=== PATIENT | male | born 1980 | race Caucasian/White ===

== ENCOUNTER 2024-11-18 11:10 | Emergency (ER) | payer OTHER, SELFPAY ==
--- NOTE | ~2024-11-18 | XR_ITS ---
EXAMINATION: XR CHEST CLINICAL INFORMATION: Chest pain COMPARISON: 09/12/2023 TECHNIQUE: PA view of the chest was obtained. FINDINGS: Heart, mediastinum, and hilar structures are unremarkable. Lungs are clear and well expanded. No bony abnormality is seen. XR/XR chest 1V IMPRESSION: No acute disease Electronically signed by: Medardo Benites MD 11/18/2024 01:41 PM EDT
--- NOTE | 2024-11-18 11:14 | ECG_ITS ---
Test Reason : CP Blood Pressure : */* mmHG Vent. Rate : 82 BPM Atrial Rate : 82 BPM P-R Int : 114 ms QRS Dur : 100 ms QT Int : 364 ms P-R-T Axes : 21 46 46 degrees QTcB Int : 425 ms Normal sinus rhythm Normal ECG When compared with ECG of 12-Sep-2023 13:09, No significant change was found Referred By: Jeaneth Min Electronically Signed By: JENNY JOHNSON
[2024-11-18 11:35] VITALS: BP 154/88; PULSE 78; RESP 18; TEMP 36.7; O2SAT 97; BMI 28.8
--- NOTE | 2024-11-18 11:35 | ED_ITS ---
HPI - Chest Pain General Chief Complaint: General Medical Stated Complaint: Chest pain, hand numbness Time Seen by Provider: 11/18/24 14:09 Source: patient Mode of arrival: ambulatory Limitations: no limitations History of Present Illness ED Provider: HPI narrative: 44-year-old male, currently tobacco use or presenting with numbness in his both hands, history of cervical radiculopathy, history of recurrent GI issues including Tito fundoplication, anxiety presented with numbness in both hands, he was performing some physical activity this friend and she just wants to make sure that he is not having a heart attack. No fevers or chills no hemoptysis. Related Data Previous Rx's ?Medication ?Instructions ?Recorded acetaminophen 500 mg tablet 500 mg PO Q6H PRN fever or pain 10/29/22 (Tylenol Extra Strength) #14 tabs cyclobenzaprine 5 mg tablet 5 mg PO Q8H PRN pain (scale score 10/29/22 7-10) 5 days #14 tabs lidocaine 5 % topical patch 1 patch topical DAILY PRN pain #30 10/29/22 (Lidoderm) ea naproxen 500 mg tablet 500 mg PO BID PRN pain 10 days #20 10/29/22 tabs oxycodone 5 mg capsule 5 mg PO Q8H PRN pain (scale score 10/29/22 7-10) 3 days #9 caps cyclobenzaprine 5 mg tablet 5 mg PO Q8H PRN pain (scale score 02/03/23 7-10) 5 days #14 tabs lidocaine 5 % topical patch 1 patch topical DAILY PRN pain #30 02/03/23 (Lidoderm) ea lorazepam 1 mg tablet (Ativan) 1 mg PO BID PRN anxiety #14 tabs 09/12/23 lorazepam 1 mg tablet (Ativan) 1 mg PO BID PRN anxiety #10 tabs 11/06/23 prednisone 20 mg tablet 60 mg (3 x 20 mg) PO DAILY 5 days 11/06/23 #15 tabs Allergies Allergy/AdvReac Type Severity Reaction Status Date / Time No Known Allergies Allergy Verified 11/18/24 11:38 Review of Systems 2 Constitutional: Constitutional: Reports as per [facility] Social History Social History Do you have a plan to hurt others: No Plan Physical Exam 2 Vital Signs: Vital Signs: Last Vital Signs Temp 98.1 F 11/18/24 11:35 Pulse 78 11/18/24 11:35 Resp 18 11/18/24 11:35 BP 154/88 H 11/18/24 11:35 Pulse Ox 97 11/18/24 11:35 O2 Del Method Room Air 11/18/24 11:35 BMI result Body Mass Index 28.8 Const: Other: * Gen: ?Overall well-appearing patient * HEENT: PERRLA, EOMI, MMM, * Neck: Supple, no LAD * CV: RRR, no obvious murmurs appreciated * Resp: ?No wheezing rales rhonchi no stridor moving air well * Abd: ?Bowel sounds are present, no tenderness no rebound no rigidity * MSK: FROM, strength 5/5 all extremities * Skin: Warm, dry, intact, radial ulna median motor sensory intact bilateral upper extremity radial ulnar pulses +2 * Neuro: ?Alert and oriented x3, moving upper and lower extremities symmetrically, no obvious facial asymmetry noted Course Course Course Narrative: This is a Rapid Medical Exam performed in triage by Jeaneth Min PA-C. Full HPI, ROS and PE to be performed by primary ED provider. 44 yo M presenting to the ED c/o chest pain w/bilateral arm numbness radiating to legs & nausea x last couple days. Admits CP is intermittent. Also reports hernia PE: NAD, nontoxic appearing, talking in complete sentences Plan: EKG, labs, CXR, SARs Medical Decision Making Medical Decision Making [facility] Narrative: No physical exam findings for cervical myelopathy, he will likely require surgeries becoming more symptomatic but no motor weakness, reviewed CT from prior visit, cardiac workup unremarkable, no hypoxia tachycardia, PERC negative, chest x-ray without pneumonia pneumothorax we will discharge Differential Diagnosis Differential Diagnoses: The differential diagnosis associated with the presentation includes ACS, pneumothorax, aortic dissection, PE, Boerhaave syndrome Lab Data [facility] Lab Attestation statement: I reviewed the patient's lab results. 11/18/24 12:40 11/18/24 12:40 Labs: Lab Results 11/18/24 Range/Units 12:40 WBC 7.8 (4.8-10.8) X10*3/uL RBC 4.52 L (4.60-5.80) X10*6/uL Hgb 13.3 L (14.0-18.0) g/dl Hct 38.8 L (42.0-52.0) % MCV 85.8 (80.0-98.0) fL MCH 29.4 (27.0-33.0) pg MCHC 34.3 (31.0-36.0) g/dl RDW 12.5 (11.0-16.0) % Plt Count 246 (160-400) X10*3/uL MPV 9.5 (9.4-12.4) fL Immature Gran % (Auto) 0.3 (0.0-0.4) % Neut % (Auto) 64.3 (45-73) % Lymph % (Auto) 27.7 (20-40) % [place] % (Auto) 5.2 (2-11) % Eos % (Auto) 2.2 (0-4) % Baso % (Auto) 0.3 (0-2) % Lymph # (Auto) 2.2 (1.2-4.9) X10*3/uL [place] # (Auto) 0.4 (0.1-1.2) X10*3/uL Eos # (Auto) 0.2 (0.0-0.4) X10*3/uL Baso # (Auto) 0.0 (0.0-0.2) X10*3/uL Abs Immat Gran (auto) 0.02 (0.00-0.03) X10*3/uL Absolute Neuts (auto) 5.0 (2.0-8.3) x10*3/uL Absolute Nucleated RBC 0.000 (0.0-0.012) X10*3/uL Nucleated RBC % (auto) 0.0 (0.0-0.2) /100WBC Sodium 132 L (135-145) mmol/L Potassium 4.5 (3.3-5.1) mmol/L Chloride 99 (96-108) mmol/L Carbon Dioxide 25 (22-29) mmol/L Anion Gap 13 (12-20) BUN 13 (9-16) mg/dL Creatinine 0.95 (0.5-1.4) mg/dL Estim Creat Clear Calc 109.2 Estimated GFR > 60 Random Glucose 137 H (60-115) mg/dL Calcium 9.9 (8.4-10.2) mg/dL Magnesium 1.6 (1.6-2.6) mg/dL Total Bilirubin 0.5 (0.0-1.0) mg/dL Direct Bilirubin 0.2 (0.0-0.5) mg/dL AST 37 (5-37) U/L ALT 51 H (0-40) U/L Alkaline Phosphatase 91 (39-117) U/L Troponin I High Sens < 2.7 (<3.5-35.0) ng/L Total Protein 7.4 (6.5-8.0) g/dL Albumin 4.8 (3.5-5.0) g/dL Lipase 30 (8-78) U/L Influenza Type A (PCR) NEGATIVE (Negative) Influenza Type B (PCR) NEGATIVE (Negative) RSV RNA Qual (PCR) NEGATIVE (Negative) SARS-CoV-2 RNA (RT-PCR) NEGATIVE (Negative) Independent Interpretation I performed an independent interpretation of an: EKG (74 beats per minute normal EKG) Radiology Impression Discussion of test interpretation with radiology: I have reviewed the radiologist's reading. Radiologist Impression: Chest x-ray unremarkable Discharge Plan Discharge Clinical Impression: Chronic neck pain, Chest pain, precordial Patient Disposition: Home, Self-Care Additional Instructions: Your workup today did not reveal any findings to suspect that you are having a heart attack, he had a normal EKG, chest x-ray, cardiac enzymes, and reassuring physical exam and vital signs. You can surely take ibuprofen 400 mg every 6 hours needed for pain, take with food, we discussed follow up with Neurosurgery for your chronic neck issue, and if you have any other issues concerns come back to the ER Prescriptions: No Action lorazepam [Ativan] 1 mg tablet 1 mg PO BID PRN (Reason: anxiety) Qty: 14 0RF lorazepam [Ativan] 1 mg tablet 1 mg PO BID PRN (Reason: anxiety) Qty: 10 0RF prednisone 20 mg tablet 60 mg PO DAILY 5 Days Qty: 15 0RF acetaminophen [Tylenol Extra Strength] 500 mg tablet 500 mg PO Q6H PRN (Reason: fever or pain) Qty: 14 0RF lidocaine [Lidoderm] 5 % adhesive patch,medicated 1 patch topical DAILY MDD remove after 12 hours PRN (Reason: pain) Qty: 30 0RF Rx Instructions: leave on most painful area for up to 12 hrs naproxen 500 mg tablet 500 mg PO BID PRN (Reason: pain) 10 Days Qty: 20 0RF cyclobenzaprine 5 mg tablet 5 mg PO Q8H PRN (Reason: pain (scale score 7-10)) 5 Days Qty: 14 0RF oxycodone 5 mg capsule 5 mg PO Q8H PRN (Reason: pain (scale score 7-10)) 3 Days Qty: 9 0RF Rx Instructions: Partial Fill upon patient request. lidocaine [Lidoderm] 5 % adhesive patch,medicated 1 patch topical DAILY MDD remove after 12 hours PRN (Reason: pain) Qty: 30 0RF Rx Instructions: leave on most painful area for up to 12 hrs cyclobenzaprine 5 mg tablet 5 mg PO Q8H PRN (Reason: pain (scale score 7-10)) 5 Days Qty: 14 0RF Print Language: Choose Not To Answer
[2024-11-18 12:47] LABS: MANUAL DIFF FLAG NO
[2024-11-18 12:48] LABS: Basophils Percent Auto 0.3 % (0-2); Eosinophils Absolute Auto 0.2 X10*3/uL (0.0-0.4); Eosinophils Percent Auto 2.2 % (0-4); Hematocrit 38.8 % (42.0-52.0); Hemoglobin 13.3 g/dl (14.0-18.0); Imm Gran Abs Auto 0.02 X10*3/uL (0.00-0.03); Imm Gran Pct Auto 0.3 % (0.0-0.4); Lymphocytes Absolute Auto 2.2 X10*3/uL (1.2-4.9); Lymphocytes Percent Auto 27.7 % (20-40); Mean Corpuscular HGB Conc 34.3 g/dl (31.0-36.0); Mean Corpuscular Hemoglobin 29.4 pg (27.0-33.0); Mean Corpuscular Volume 85.8 fL (80.0-98.0); Mean Platelet Volume 9.5 fL (9.4-12.4); Monocytes Absolute Auto 0.4 X10*3/uL (0.1-1.2); Monocytes Percent Auto 5.2 % (2-11); Neutrophils Percent Auto 64.3 % (45-73); Platelet Count 246 X10*3/uL (160-400); Red Blood Count 4.52 X10*6/uL (4.60-5.80); Red Cell Distribution Width 12.5 % (11.0-16.0); White Blood Count 7.8 X10*3/uL (4.8-10.8)
[2024-11-18 13:01] LABS: Alanine Aminotransferase 51 U/L (0-40); Albumin Level 4.8 g/dL (3.5-5.0); Alkaline Phosphatase 91 U/L (39-117); Anion Gap 13 (12-20); Aspartate Amino Transferase 37 U/L (5-37); Bilirubin Direct 0.2 mg/dL (0.0-0.5); Bilirubin Total 0.5 mg/dL (0.0-1.0); Blood Urea Nitrogen 13 mg/dL (9-16); Calcium 9.9 mg/dL (8.4-10.2); Carbon Dioxide 25 mmol/L (22-29); Chloride 99 mmol/L (96-108); Creatinine Clr Calc Pharmacy 109.2; Estimated Glomerular Filt Rate > 60; Glucose Random 137 mg/dL (60-115); Lipase 30 U/L (8-78); Magnesium 1.6 mg/dL (1.6-2.6); Potassium 4.5 mmol/L (3.3-5.1); Sodium 132 mmol/L (135-145); Total Protein 7.4 g/dL (6.5-8.0)
[2024-11-18 13:13] LABS: Troponin-I High Sensitivity < 2.7 ng/L (<3.5-35.0)
[2024-11-18 13:27] LABS: Influenza A PCR NEGATIVE (Negative); Influenza B PCR NEGATIVE (Negative); Resp Syncy Virus RNA Qual PCR NEGATIVE (Negative); SARS COV2 PCR INHOUSE NEGATIVE (Negative)
[2024-11-18 14:28] VITALS: BP 140/86; PULSE 80; RESP 16; TEMP 36.8; O2SAT 97
[2024-11-18 14:43] VITALS: BP 140/86; PULSE 80; RESP 16; TEMP 36.8; O2SAT 97
--- OUTSIDE RECORDS SUMMARY | 2024-11-18 17:32 | XMS_ITS | Clinical Summary ---
Author Organization [facility] [address] [place] [address] [place] [phone] Phone Care Team Providers Care Manager Research Development Name Role Phone Paulette Hollis MD Primary Care Provider [phone] Allergies Active Allergy Reactions Criticality Noted Date Comments Cat Dander 04/14/2020 Other reaction(s): Unknown Tree Nuts Anaphylaxis High 04/14/2020 Hazelnuts Medications loratadine (CLARITIN) 10 mg tablet Take 1 Tablet by mouth daily. Prn seasonal 4 Active calcium carbonate (TUMS) 500 mg (200 mg elemental calcium) chewable tablet Chew 1 tablet (500 mg total) 1 (one) time each day. Active acetaminophen (TYLENOL) 500 mg tablet Take 1 Tablet by mouth every 6 hours as needed. 2 tabs twice a day Active ibuprofen (ADVIL,MOTRIN) 600 mg tablet Take 1 Tablet by mouth every 6 hours as needed. Active renal multivitamin (DIALYVITE-800 PLUS D) chewable tablet Chew 1 tablet 1 (one) time each day. Active Active Problems Problem Noted Date Diagnosed Date Chronic low back pain with sciatica 11/17/2023 Overview (2024): Last Assessment & Plan: Mr. Rodriguez has a history of a lumbar herniated disc 10 years ago and he has had some degree of symptoms since that time. He now describes occasional episodes of the right leg going numb. A lumbar spine MRI was denied and he has tried physical therapy instead without relief. He had no relief from PT in the past either. At this time, we will concentrate on his neck pain. Cervical spondylosis 09/09/2023 Overview (2024): Last Assessment & Plan: Mr. Rodriguez continues to describe daily neck pain with a tightness in the back of his neck. His hands go numb throughout the day with various activities but particularly driving and he has episodes of dropping things. 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 He has tried using a home TENS unit without much benefit. He takes Tylenol and ibuprofen. On exam, cervical rotation is 75 degrees bilaterally, strength 5/5, sensation light touch intact, Tinel's test and Phalen's maneuver are negative. We reviewed his cervical spine MRI from 08/21/2023 which shows loss of disc height at C4-5 with mild central stenosis and mild to moderate foraminal stenosis. There is no cord compression or visible nerve root compression though the foramen is a little short. An upper extremity EMG at [facility] performed by Dr. Crane on 10/06/2023 was within normal limits. At this point, Mr. Barkley would like to explore any remaining options as he wants to return to full work and activity. Though there was not evidence of radiculopathy on the EMG, I imagine that he could develop symptoms after long periods of being upright. I suggested trying a home traction unit and if he sees relief, I would consider a C5-6 ACDF with plating. He is agreeable with the plan and a prescription was given. 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 Negative for dysplasia. Tito Fundoplication in 05/2012 Dr. Arroyo. 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 Recommend repeat upper endoscopy in 2 years. GERD (gastroesophageal reflux disease) 3 Hiatal hernia 05/26/2013 Resolved Problems Problem Noted Date Diagnosed Date Resolved Date Tattoo of skin 09/21/2013 07/14/2024 Bipolar affective disorder ( [facility] V24, [facility] V28) 05/26/2013 07/14/2024 Overview (2024): Getting ativan from Steph Jerome at [facility] for anxiety symptoms Encounters Date Type Department Care Team Description 10/27/2024 11:30 AM EDT Office Visit Adult Medicine [facility] [address] [place] [phone] Paul Mccormack PA Tongue lesion (Primary Dx) from Last 3 Months Immunizations Name Administration Dates Next Due Tdap Tetanus diptheria acell ular pertussis (Boostrix; Adacel) 7yo and older 07/14/2013 Surgical History Surgery Date Site/Laterality Comments TONSILLECTOMY PROCEDURE: HISTORICAL TONSILLECTOMY WRIST SURGERY 07/2012 PROCEDURE: HISTORICAL WRIST SURGERY; COMMENT: left wrist orif OTHER SURGICAL HISTORY PROCEDURE: LAPAROSCOPIC FUNDOPLASTY; COMMENT: nissel fundoplication ESOPHAGOGASTRODUODENOSCOPY 03/20/2011 PROCEDURE: CO EGD TRANSORAL BIOPSY SINGLE/MULTIPLE; COMMENT: Dr. 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 Mild chronic gastritis. Normal duodenal biopsy. Esophageal biopsy positive for Hubbard's mucosa without dysplasia. ESOPHAGOGASTRODUODENOSCOPY 04/27/2013 PROCEDURE: CO EGD TRANSORAL BIOPSY SINGLE/MULTIPLE; COMMENT: Dr. Jain - long segment of Hubbard's esophagus. Status post fundoplication. Esophageal biopsy confirms Hubbard's mucosa without dysplasia. Recommend repeat upper endoscopy in 2 years. ESOPHAGOGASTRODUODENOSCOPY 01/19/15 PROCEDURE: CO ESOPHAGOGASTRODUODENOSCOPY TRANSORAL DIAGNOSTIC; COMMENT: Dr. 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 Arroyo Bipolar affective disorder ( [facility] V24, [facility] V28) 05/26/2013 DX:Bipolar affective disorde r ([facility]); COMMENT: Getting ativan from Steph Jerome at [facility] for anxiety symptoms Osteopenia DX:Osteopenia Tattoo of skin 09/21/2013 Family History Medical History Relation Name Comments Other: early onset alzeihmers Father Lymphoma Maternal Grandfather Diabetes Mother Colon cancer Paternal Grandfather Alzheimer's disease Paternal Grandmother Relation Name Status Comments Father healthy Maternal Grandfather Mother Alive dm, htn Paternal Grandfather Paternal Grandmother Social History Tobacco Use Types Packs/Day Years Used Date Smoking Tobacco: Former Cigarettes Q uit: 06/16/2010 Smokeless Tobacco: Never Tobacco Cessation:Counseling Given: Not Answered Alcohol Use Standard Drinks/Week Comments No 0 (1 standard drink = 0.6 oz pur e alcohol) Housing Instability Answer Date Recorde d Are you worried that in the next 2 months you may not have stable housing? Patient declined 10/26/2024 Food Access & Nutrition Answer Date Rec orded Do you have access to a vari ety of food including fruits and vegetables? Patient declined 10/26/2024 Health Literacy Answer Date Recorded How often do you need to hav e someone help you when you read instructions, pamphlets, or other written material from your doctor or pharmacy? Patient declined 10/26/2024 Caregiver: How often do you need to have someone help you when you read instructions, pamphlets, or other written material from your doctor or pharmacy? Not on file 025 Financial Risk Answer Date Recorded How hard is it for you to pa y for the very basics like food, housing, medical care, and air conditioning / heating? Patient declined 10/26/2024 Transportation Answer Date Recorded Has the lack of transportati on kept you from meetings, work, or from getting things needed for daily living? Patient declined 10/26/2024 Has the lack of transportati on kept you from medical appointments or from getting medications? Patient declined 10/26/2024 Social Isolation Answer Date Recorded How often do you feel lonely or isolated from those around you? Patient declined 10/26/2024 Food Risk Answer Date Recorded Within the past 12 months we worried whether our food would run out before we got money to buy more. Patient declined 025 Within the past 12 months th e food we bought just didn't last and we didn't have money to get more. Patient declined 10/14 Dependent Care Answer Date Recorded Do you need help finding or paying for care for your loved ones. For example, child attendant or elderly care for an older adult? Patient declined 10/26/2024 Education Answer Date Recorded Do you think completing more education or training, like finishing a GED, going to college, or learning a trade, would be helpful for you? Patient declined 10/26/2024 Employment and Income Answer Date Recor ded During the last four weeks, have you been actively looking for work? Patient declined 10/26/2024 Living Situation Answer Date Recorded What is your living situation? 0 10/26/2024 Sex and Gender Information Value Date Recorded Sex Assigned at Not on file Legal Sex Male 1:15 AM EST Gender Identity Not on file Sexual Orientation Not on file Obstetrics History Last Filed Vital Signs Vital Sign Reading Time Taken Comments Blood Pressure 112/70 10/27/2024 11:22 AM EDT Pulse 81 10/27/2024 11:22 AM EDT Temperature 36.8 ??C (98.3 ??F) 10/27/2024 11:22 AM E DT Respiratory Rate 16 10/27/2024 11:22 AM EDT Oxygen Saturation - - Inhaled Oxygen Concentration - - Weight 87.1 kg (192 lb) 10/27/2024 11:22 AM EDT Height 175.3 cm (5' 9 ) 10/27/2024 11:22 AM EDT Body Mass Index 28.35 10/27/2024 11:22 AM EDT Plan of Treatment Health Maintenance Due Date Last Done Comments Hepatitis B Vaccines (3 of 3 - 3-dose series) 12/24/2000 10/29/2000, 02/12/1999, 01/20/1998 DTaP,Tdap,and Td Vaccines (8 - Td or Tdap) 07/14/2023 07/14/2013, 12/30/1994, 02/10/1985, Additional history exists COVID-19 Vaccine ( season) 2024 12/06/2020, 11/15/2020 Influenza Vaccine (Season Ended) 2025 Depression Screening 10/26/2025 10/26/2024 Social Influencers of Health Screening 10/26/2025 10/26/2024 Cholesterol Screening (Lipid Panel) 10/09/2028 10/10/2023, 10/10/2023 IPV Vaccines Completed 02/10/1985, 11/14, 1980, Additional history exists MMR Vaccines Completed 11/13/1992, 08/30/1981 HIV Screening Completed 12/20/2020 Hepatitis C Screening Completed 05/30/2022 HIB Vaccines Aged Out No longer eligi ble based on patient's age to complete this topic HPV Vaccines Aged Out No longer eligi ble based on patient's age to complete this topic Hepatitis A Vaccines Aged Out No long er eligible based on patient's age to complete this topic Meningococcal ACWY Vaccine Aged Out N o longer eligible based on patient's age to complete this topic Meningococcal B Vaccine Aged Out No l onger eligible based on patient's age to complete this topic Pneumococcal Vaccine: Pediatrics (0 to 5 Years) and At-Risk Patients (6 to 64 Years) Aged Out No longer eligible based on patient's age to complete this topic RSV Immunization Patients Under 20 months Aged Out No longer eligible based on patient's age to complete this topic Varicella Vaccines Aged Out No longer eligible based on patient's age to complete this topic Procedures Procedure Name Priority Date/Time Associated Diagnosis Comments LIPID PANEL Routine 10/10/2023 HEPATITIS C SCREENING Routine 05/30/2022 HIV SCREENING Routine 12/20/2020 from Last 3 Months or Most Recently Relevant to Health Maintenance Results * (ABNORMAL) Lipid panel (10/10/2023) LDL/HDL Ratio 5(A) 0 - 4 Triglycerides 213(A) 0 - 150 mg/dL Cholesterol 295(A) 0 - 200 mg/dL HDL 65 >=40 mg/dL LDL Cholesterol 188(A) 0 - 100 mg/dL Blood Venous blood specimen / Unknown Historical Provider LAB BLOOD ORDERABLES Neha l Result * Hepatitis C Screening (05/30/2022) Hepatitis C Screening abstracted Historical Provider HEALTH MAINTENANCE Final Result * HIV Screening (12/20/2020) HIV Screening abstracted us Historical Provider HEALTH MAINTENANCE Final Result from Last 3 Months or Most Recently Relevant to Health Maintenance Insurance [facility] [employer] Care Teams Manager Research Development Relationship Specialty Start Date End Date Paulette Hollis MD [address] [place] [phone] PCP - General Internal Medicine 02/25/22
== END 2024-11-18 14:47 | disposition home or self-care (01) ==
LOC: HO.ED 14:51
PROVIDERS: Physician Assistant; Emergency Provider Emergency Medicine
DX: R07.89 Other chest pain (principal); M54.2 Cervicalgia; Z03.818 Encounter for observation for suspected exposure to other biological agents ruled out; Z79.899 Other long term (current) drug therapy
CPT/HCPCS: 0241U; 71045; 80048; 80076; 83690; 83735; 84484; 85025; 93005; 99283; 99284

== ENCOUNTER → 2024-11-18 11:38 | Outpatient (BNV) | payer OTHER, SELFPAY | PROVIDERS: Visit Provider Radiology Diagnostic Radiology | DX: R07.9 Chest pain, unspecified (principal) | CPT/HCPCS: 71045 ==

== ENCOUNTER 2024-12-08 22:30 | Emergency (ER) | payer OTHER, SELFPAY ==
--- NOTE | ~2024-12-08 | XR_ITS ---
CLINICAL HISTORY: acute on chronic pain, no trauma 2 views cervical spine Comparison: CT/SR - CT CERVICAL SPINE WO IV CON - 11/06/23 17:01 EDT Findings: There is straightening of the normal cervical lordosis. No acute fractures or dislocation. Multilevel degenerative changes are present, more severe at C5-C6. Prevertebral soft tissues within normal limits. IMPRESSION: No acute findings. This document has been electronically signed by: Pramod Cee MD, PHD on 12/09/2024 02:14:14
--- NOTE | ~2024-12-08 | XR_ITS ---
CLINICAL HISTORY: hx T4 fx due to osteoporosis, c o pain 2 views thoracic spine Comparison: CR/SR - XR THORACIC SPINE 3V - 10/29/22 12:57 EDT Findings: Normal vertebral body alignment. No acute fractures or dislocation. No significant degenerative change. IMPRESSION: No acute findings. This document has been electronically signed by: Pramod Cee MD, PHD on 12/09/2024 02:12:53
[2024-12-08 22:33] VITALS: BP 168/101; PULSE 91; RESP 18; TEMP 36.5; O2SAT 98; BMI 29.0
[2024-12-08 23:36] VITALS: BP 159/98; PULSE 93; RESP 18; TEMP 36.7; O2SAT 96
[2024-12-09 00:29] LABS: MANUAL DIFF FLAG NO
[2024-12-09 00:33] LABS: Basophils Percent Auto 0.3 % (0-2); Eosinophils Absolute Auto 0.1 X10*3/uL (0.0-0.4); Eosinophils Percent Auto 0.8 % (0-4); Hematocrit 34.4 % (42.0-52.0); Hemoglobin 12.3 g/dl (14.0-18.0); Imm Gran Abs Auto 0.03 X10*3/uL (0.00-0.03); Imm Gran Pct Auto 0.2 % (0.0-0.4); Lymphocytes Absolute Auto 2.9 X10*3/uL (1.2-4.9); Lymphocytes Percent Auto 22.8 % (20-40); Mean Corpuscular HGB Conc 35.8 g/dl (31.0-36.0); Mean Corpuscular Hemoglobin 29.6 pg (27.0-33.0); Mean Corpuscular Volume 82.7 fL (80.0-98.0); Mean Platelet Volume 9.5 fL (9.4-12.4); Monocytes Absolute Auto 0.5 X10*3/uL (0.1-1.2); Monocytes Percent Auto 4.2 % (2-11); Neutrophils Percent Auto 71.7 % (45-73); Platelet Count 214 X10*3/uL (160-400); Red Blood Count 4.16 X10*6/uL (4.60-5.80); Red Cell Distribution Width 12.3 % (11.0-16.0); White Blood Count 12.5 X10*3/uL (4.8-10.8)
[2024-12-09 00:51] LABS: Alanine Aminotransferase 60 U/L (0-40); Albumin Level 4.5 g/dL (3.5-5.0); Alkaline Phosphatase 78 U/L (39-117); Anion Gap 17 (12-20); Aspartate Amino Transferase 39 U/L (5-37); Bilirubin Total 0.5 mg/dL (0.0-1.0); Blood Urea Nitrogen 11 mg/dL (9-16); Calcium 9.6 mg/dL (8.4-10.2); Carbon Dioxide 19 mmol/L (22-29); Chloride 98 mmol/L (96-108); Creatinine Clr Calc Pharmacy 115.7; Estimated Glomerular Filt Rate > 60; Glucose Random 149 mg/dL (60-115); Potassium 3.9 mmol/L (3.3-5.1); Sodium 130 mmol/L (135-145); Total Protein 6.9 g/dL (6.5-8.0)
[2024-12-09 01:12] LABS: Influenza A PCR NEGATIVE (Negative); Influenza B PCR NEGATIVE (Negative); Resp Syncy Virus RNA Qual PCR NEGATIVE (Negative); SARS COV2 PCR INHOUSE NEGATIVE (Negative)
--- NOTE | 2024-12-09 01:35 | ED_ITS ---
HPI - General Adult General Chief complaint: Back Pain/Injury Stated complaint: neck injury Time Seen by Provider: 12/09/24 01:24 Source: patient Mode of arrival: ambulatory Limitations: no limitations History of Present Illness ED Provider: Dr. Marzena Castro HPI narrative: Patient comes to the emergency room with multiple complaints, patient complaining of chronic pain, states that he has been previously diagnosed with cervical radiculopathy and old T4 fractures, osteoporosis. Patient states that as chronic neuropathy. Patient states that he is feels a bit heavier than usual. No loss of motor strength, states that overall he does not feel quite well. Denies any chest pain or shortness of breath, no syncopal episodes. Patient states that his legs feel heavy as well. Denies any urinary/fecal incontinence/retention. Patient admits that he has been doing a lot of work outside in and almost 100 F weather and states that he has been keeping up with fluids as much as he can not. Related Data Previous Rx's ?Medication ?Instructions ?Recorded acetaminophen 500 mg tablet 500 mg PO Q6H PRN fever or pain 10/29/22 (Tylenol Extra Strength) #14 tabs cyclobenzaprine 5 mg tablet 5 mg PO Q8H PRN pain (scal e score 10/29/22 7-10) 5 days #14 tabs lidocaine 5 % topical patch 1 patch topical DAILY PRN pain #30 10/29/22 (Lidoderm) ea naproxen 500 mg tablet 500 mg PO BID PRN pain 10 da ys #20 10/29/22 tabs oxycodone 5 mg capsule 5 mg PO Q8H PRN pain (scale score 10/29/22 7-10) 3 days #9 caps cyclobenzaprine 5 mg tablet 5 mg PO Q8H PRN pain (scal e score 02/03/23 7-10) 5 days #14 tabs lidocaine 5 % topical patch 1 patch topical DAILY PRN pain #30 02/03/23 (Lidoderm) ea lorazepam 1 mg tablet (Ativan) 1 mg PO BID PRN anxiety #14 tabs 09/12/23 lorazepam 1 mg tablet (Ativan) 1 mg PO BID PRN anxiety #10 tabs 11/06/23 prednisone 20 mg tablet 60 mg (3 x 20 mg) PO DAILY 5 days 11/06/23 #15 tabs Allergies Allergy/AdvReac Type Severity Reaction Status Date / Time No Known Allergies Allergy Verified 12/08/24 22:37 Review of Systems 2 Review of Systems: Constitutional : No Weight loss, No Fever, No Chills, No Night Sweats, complaining of fatigue and generalized malaise ENT/Mouth : No Hearing loss, No Ear Pain, No Nasal Congestion, No Sinus Pain, No Hoarseness, No sore throat, No Rhinorrhea, No Swallowing Difficulty Eyes: No Eye Pain, No Swelling, No Redness, No Foreign Body, No Discharge, No Vision Changes Cardiovascular : No Chest Pain, No SOB, No Dyspnea on Exertion, No Orthopnea, No Edema, No Palpitations Respiratory : No Cough, No Sputum, No Wheezing, No Smoke Exposure, No Dyspnea Gastrointestinal : No Nausea, No Vomiting, No Diarrhea, No Constipation, No abdominal Pain, No Hematochezia, No Melena Genitourinary : no irregular bleeding, No Dysuria, No Urinary Frequency, No Hematuria, No Urinary Incontinence, No Urgency, No Flank Pain, No Urinary Flow Changes, No Hesitancy Musculoskeletal : Chronic pain in the neck and upper thoracic spine Skin : No Skin Lesions, No rash Neuro : No Weakness, No Numbness, No Paresthesias, No Loss of Consciousness, No Dizziness, No Headache Psych : No Anxiety/Panic, No Depression, No SI/HI/AH/VH, No Social Issues, Heme/Lymph: No Bruising, No Bleeding,No Lymphadenopathy Endocrine : No Polyuria, No Polydipsia, No Temperature Intolerance [facility] Past Medical History Medical History (Updated 12/09/24 @ 03:48 by Marzena Castro MD) Osteoporosis Social History Social History Smoked in Last 30 Days: No Use of substances other than those prescribed or required for medical reasons: No Advance Directives: No Advance Directives Information Provided: Yes Physical Exam ED Vital Signs: Vital Signs - 24 hr 12/08/24 22:33 12/08/24 23:36 12/09/24 01:45 Temperature 97.7 F 98.0 F 98.1 F Pulse Rate 91 93 82 Respiratory Rate 18 18 16 Blood Pressure 168/101 H 159/98 H 152/95 H Pulse Oximetry 98 96 98 Oxygen Delivery Method Room Air Room Air Room Air BMI result Body Mass Index 29.0 Const Other: Appearance: Alert. Oriented X3. No acute distress. Eyes: Pupils equal, round and reactive to light. ENT: Pharynx normal. Neck: Normal inspection. Neck supple. No lymph nodes noted. No crepitus CVS: Normal heart rate and rhythm. Pulses normal. Normal S1 and S2 Respiratory: No respiratory distress. Breath sounds normal. No Wheezing. No rales Abdomen: Soft and nontender. No rigidity. No distention. Back: No palpable step-offs, states that has pain to palpation over the cervical and upper thoracic spine, chronic Skin: Skin warm and dry. Normal skin color. Normal skin turgor. Extremities: No lower extremity edema. No Lacerations. No Rash, normal strength 4/5 in both bilateral upper and lower extremities Neuro: Oriented X 3. No motor deficit. No sensory deficit. Moving all extremities. No slurred speech. CN 2 through 12 grossly intact Psych: calm, cooperative, normal affect Course Course Course Narrative: Patient comes in complaining of chronic pain radiculopathy. Also complaining of new onset of generalized malaise. All of patient's labs and imaging pending Medications Administered Discontinued Medications Generic Name Dose Route Start Last Admin Trade Name Freq PRN Reason Stop Dose Admin Sodium Chloride 1,000 mls @ 999 mls/hr 12/09/24 01:32 12/09/24 02:07 Ns IVCONT 12/09/24 02:32 999 mls/hr .Q1H1M ONE Administration Ibuprofen 600 mg 12/09/24 02:10 12/09/24 02:15 Ibuprofen 600 Mg Tablet PO 12/09/24 02:11 600 mg ONCE ONE Administration Medical Decision Making Medical Decision Making [facility] Narrative: My interpretation of labs: Patient's white blood cell count 12.5, no clear source of infection. No fever. Patient is 130 which is new for the patient. Patient admits that he has been drinking plenty of fluids, likely without electrolytes. LFTs normal, serology negative for influenza COVID and RSV. Patient receiving IV fluids, then we will recheck electrolytes sec. X-rays of the cervical spine and thoracic spine do not show any acute abnormality. Patient was started on IV fluids. After a proximally 250 cc, patient states that he starting feeling very weird and requested to have the IV taken out Patient states that his legs are shaking uncontrollably. However, patient's legs and shaking at all. Patient has been walking around the emergency room with normal steady gait. Overall, patient is requesting that we not give him any fluids. Patient likely drank too much fluid and Dilaudid his sodium. Patient instructed to drink fluids with electrolytes in moderation, such as Powerade. Patient was asking how much salt should he had to his drinks. I discussed with the patient that as long as he drinks fluids with electrolytes, he does not need to add salt to his drinks. The patient's seems to be very anxious about his health. At this time, patient does not seem to be weak, has normal strength in all extremities. There is no shaking as he claims he does. Differential Diagnosis Differential Diagnoses: The differential diagnosis associated with the presentation includes (Anxiety, hyponatremia due to dilution, chronic pain) Admission/Observation Consideration of admission/observation: Escalation of care including admission/observation considered (Symptoms, observation was considered) Lab Data MDM Lab Attestation statement: I reviewed the patient's lab results. 12/09/24 00:25 12/09/24 00:25 Labs: Lab Results 12/09/24 Range/Units 00:25 WBC 12.5 H (4.8-10.8) X10*3/uL RBC 4.16 L (4.60-5.80) X10*6/uL Hgb 12.3 L (14.0-18.0) g/dl Hct 34.4 L (42.0-52.0) % MCV 82.7 (80.0-98.0) fL MCH 29.6 (27.0-33.0) pg MCHC 35.8 (31.0-36.0) g/dl RDW 12.3 (11.0-16.0) % Plt Count 214 (160-400) X10*3/uL MPV 9.5 (9.4-12.4) fL Immature Gran % (Auto) 0.2 (0.0-0.4) % Neut % (Auto) 71.7 (45-73) % Lymph % (Auto) 22.8 (20-40) % [place] % (Auto) 4.2 (2-11) % Eos % (Auto) 0.8 (0-4) % Baso % (Auto) 0.3 (0-2) % Lymph # (Auto) 2.9 (1.2-4.9) X10*3/uL [place] # (Auto) 0.5 (0.1-1.2) X10*3/uL Eos # (Auto) 0.1 (0.0-0.4) X10*3/uL Baso # (Auto) 0.0 (0.0-0.2) X10*3/uL Abs Immat Gran (auto) 0.03 (0.00-0.03) X10*3/uL Absolute Neuts (auto) 9.0 H (2.0-8.3) x10*3/uL Absolute Nucleated RBC 0.000 (0.0-0.012) X10*3/uL Nucleated RBC % (auto) 0.0 (0.0-0.2) /100WBC Sodium 130 L (135-145) mmol/L Potassium 3.9 (3.3-5.1) mmol/L Chloride 98 (96-108) mmol/L Carbon Dioxide 19 L (22-29) mmol/L Anion Gap 17 (12-20) BUN 11 (9-16) mg/dL Creatinine 0.90 (0.5-1.4) mg/dL Estim Creat Clear Calc 115.7 Estimated GFR > 60 Random Glucose 149 H (60-115) mg/dL Calcium 9.6 (8.4-10.2) mg/dL Total Bilirubin 0.5 (0.0-1.0) mg/dL AST 39 H (5-37) U/L ALT 60 H (0-40) U/L Alkaline Phosphatase 78 (39-117) U/L Total Protein 6.9 (6.5-8.0) g/dL Albumin 4.5 (3.5-5.0) g/dL Influenza Type A (PCR) NEGATIVE (Negative) Influenza Type B (PCR) NEGATIVE (Negative) RSV RNA Qual (PCR) NEGATIVE (Negative) SARS-CoV-2 RNA (RT-PCR) NEGATIVE (Negative) Independent Interpretation I performed an independent interpretation of an: Plain X-Ray Radiology Impression Discussion of test interpretation with radiology: I have reviewed the radiologist's reading. Radiologist Impression: Normal vertebral body alignment. No acute fractures or dislocation. No significant degenerative change There is straightening of the normal cervical lordosis. No acute fractures or dislocation. Multilevel degenerative changes are present, more severe at C5-C6. Prevertebral soft tissues within normal limits. Critical Care Time Critical Care Time Critical Care Time: Yes Total Critical Care Time: 45 Attestation: I have personally provided critical care time. Time includes review of lab data, radiology results, discussion with consultants, and monitoring for potential decompensation. Intervention performed as documented. Discharge Plan Discharge Clinical Impression: Chronic pain, Acute hyponatremia, Anxiety about health Patient Disposition: Home, Self-Care Instructions: Hyponatremia (ED), Liquids and Hydration for Athletes (ED), Chronic Pain (ED), Anxiety (ED) Prescriptions: No Action lorazepam [Ativan] 1 mg tablet 1 mg PO BID PRN (Reason: anxiety) Qty: 14 0RF lorazepam [Ativan] 1 mg tablet 1 mg PO BID PRN (Reason: anxiety) Qty: 10 0RF prednisone 20 mg tablet 60 mg PO DAILY 5 Days Qty: 15 0RF acetaminophen [Tylenol Extra Strength] 500 mg tablet 500 mg PO Q6H PRN (Reason: fever or pain) Qty: 14 0RF lidocaine [Lidoderm] 5 % adhesive patch,medicated 1 patch topical DAILY MDD remove after 12 hours PRN (Reason: pain) Qty: 30 0RF Rx Instructions: leave on most painful area for up to 12 hrs naproxen 500 mg tablet 500 mg PO BID PRN (Reason: pain) 10 Days Qty: 20 0RF cyclobenzaprine 5 mg tablet 5 mg PO Q8H PRN (Reason: pain (scale score 7-10)) 5 Days Qty: 14 0RF oxycodone 5 mg capsule 5 mg PO Q8H PRN (Reason: pain (scale score 7-10)) 3 Days Qty: 9 0RF Rx Instructions: Partial Fill upon patient request. lidocaine [Lidoderm] 5 % adhesive patch,medicated 1 patch topical DAILY MDD remove after 12 hours PRN (Reason: pain) Qty: 30 0RF Rx Instructions: leave on most painful area for up to 12 hrs cyclobenzaprine 5 mg tablet 5 mg PO Q8H PRN (Reason: pain (scale score 7-10)) 5 Days Qty: 14 0RF Print Language: Choose Not To Answer
[2024-12-09 01:45] VITALS: BP 152/95; PULSE 82; RESP 16; TEMP 36.7; O2SAT 98
[2024-12-09] MEDS: 0.9 % Sodium Chloride 1,000 ML 999 ML IVCONT (02:07)
[2024-12-09] MEDS: Ibuprofen 600 MG TABLET PO (02:15)
--- NOTE | 2024-12-09 03:08 | PC.NURSE ---
pt reporting his legs started shaking uncontrollably after NS started infusing. got up to use the bathroom, reports the shaking stopped so does not want to continue bolus. aware
[2024-12-09 04:04] VITALS: BP 150/92; PULSE 87; RESP 20; TEMP 36.6; O2SAT 97
[2024-12-09] MEDS: LORazepam 1 MG TABLET PO (04:08)
[2024-12-09 04:13] VITALS: BP 150/92; PULSE 87; RESP 20; TEMP 36.6; O2SAT 97
== END 2024-12-09 04:13 | disposition home or self-care (01) ==
PROVIDERS: Emergency Provider Emergency Medicine
DX: E87.1 Hypo-osmolality and hyponatremia (principal); G89.29 Other chronic pain; M54.12 Radiculopathy, cervical region; M54.14 Radiculopathy, thoracic region; M54.6 Pain in thoracic spine; F41.9 Anxiety disorder, unspecified; Z03.818 Encounter for observation for suspected exposure to other biological agents ruled out; Z79.899 Other long term (current) drug therapy
CPT/HCPCS: 0241U; 72040; 72070; 80053; 85025; 96360; 96361; 99284

== ENCOUNTER → 2024-12-09 01:32 | Outpatient (BNV) | payer OTHER, SELFPAY | PROVIDERS: Emergency Provider Emergency Medicine; Visit Provider General Practice | DX: M54.2 Cervicalgia (principal); M54.6 Pain in thoracic spine | CPT/HCPCS: 72040; 72070 ==

== ENCOUNTER 2024-12-23 13:04 | Emergency (ER) | payer OTHER, SELFPAY ==
--- OUTSIDE RECORDS SUMMARY | 2024-12-21 13:30 | XMS_ITS | Encounter Summary ---
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 For example, children's counselor or elderly care for an older adult? [...] on file Sexual Orientation Not on file documented as of this encounter Last Filed Vital Signs Vital Sign Reading Time Taken Comments Blood Pressure 118/82 12/21/2024 1:48 PM EDT Pulse 78 12/21/2024 1:48 PM EDT Temperature 36.2 C (97.2 F) 12/21/2024 1:48 PM EDT Respiratory Rate 14 12/21/2024 1:48 PM EDT Oxygen Saturation 98% 12/21/2024 1:48 PM EDT Inhaled Oxygen Concentration - - Weight 84.4 kg (186 lb) 12/21/2024 1:48 PM EDT Height 172.7 cm (5' 8 ) 12/21/2024 1:48 PM EDT Body Mass Index 28.28 12/21/2024 1:48 PM EDT documented in this encounter Progress Notes * Paulette Hollis MD - 12/21/2024 1:30 PM EDT Images from the original note were not included. CHIEF COMPLAINT: Follow-[place] [place] IDENTIFIER: Carlos Alberto Rodriguez is a 44 y.o. old male. HPI: Patient is a 42-year-old male with history of GERD s/p Tito fundoplication in 2011, esophageal stenosis s/p dilatation, Hubbard's esophagus (undergoing surveillance 2 to 3 years) who is here for follow-up visit. Patient is a 44-year-old male who is here for ER follow-up, patient was evaluated on 11/18/2024 at [facility] for numbness in both hands with intermittent chest pain. Vitals in the ER were temp 98.1, heart rate 78, blood pressure 154/88. Blood work WBC 7.8, hemoglobin 13.3,platelet 246, sodium 132, potassium 4.5, creatinine 0.95, magnesium 1.6, AST/ALT 37/51, alkaline phosphatase 91, high-sensitivity troponin negative, lipase 30, EKG reported to be normal. 12/08/2024 at [facility] ER for chronic pain. Patient reported history of chronic pain secondary to cervical radiculopathy and old T4 fractures/chronic neuropathy, patient reported feels abit heavier than usual. Patient reported that was working outside in the 100 degree weather. Vitals in the ER were temp 97.7, heart rate 91, respiratory rate 18, blood pressure 168/101, 98% onroom air. Blood work WBC 12.5, hemoglobin 12.3, platelet 214, sodium 130, potassium 3.9, creatinine 0.9, random glucose 149, AST/ALT 39/60, alkaline phosphatase 78, albumin 4.5, influenza/RSV/COVID-negative patient underwent x-ray of the cervical spine and thoracic spine which did not show any acute abnormality, severe degenerative changes at C5-C6.. Patient was started on IV fluids after approximately 250cc patient reported that he was feeling weird and requested that IV be taken out. Patient presents today for follow-up, he reports that has been having difficulty swallowing, cannotfinish his meal as when he is eating feels like the food is getting stuck going down the throat. Hehas history of esophageal stenosis, underwent EGD with dilatation last year. He also is history of Hubbard's esophagus, undergoing surveillance every 2 to 3 years, however he has been having to take ibuprofen because of neck pain, did see neurosurgery for the neck pain and was advised traction device which he has been using but does not seem to help, was also advised surgery if no improvement with traction device for which she will require follow-up with neurosurgery however he defers for now wa nts to follow-up with gastro first regarding the dysphagia. ROS: Review of systems: Pertinent items are noted in HPI PAST MEDICAL HISTORY: Patient Active Problem List Diagnosis Date Noted Chronic low back pain with sciatica 11/17/2023 Cervical spondylosis 09/09/2023 Dyskinesia of esophagus 05/30/2022 Osteoporosis 09/22/2014 Hyperlipidemia 07/02/2014 Vitamin D deficiency 07/02/2014 Esophageal stenosis 05/26/2013 GERD (gastroesophageal reflux disease) 05/26/2013 Hiatal hernia 05/26/2013 SOCIAL HISTORY: Social History Tobacco Use Smoking status: Former Current packs/day: 0.00 Types: Cigarettes Quit date: 06/16/2010 Years since quittin.5 Smokeless tobacco: Never Substance Use Topics Alcohol use: No FAMILY HISTORY: Family Status Relation Name Status PGM (Not Specified) Mother Alive dm, htn Father healthy MGF (Not Specified) PGF (Not Specified) No partnership data on file Family History Problem Relation Name Age of Onset Alzheimer's disease Paternal Grandmother Diabetes Mother Other (Other: early onset alzeihmers) Father 40.00 Lymphoma Maternal Grandfather Colon cancer Paternal Grandfather 90.00 ACTIVE MEDICATIONS: Outpatient Medications Marked as Taking for the 12/21/24 encounter (Office Visit) with Paulette Hollis MD Medication Sig Dispense Refill acetaminophen (TYLENOL) 500 mg tablet Take 1 Tablet by mouth every 6 hours as needed. 2 tabs twice a day calcium carbonate (TUMS) 500 mg (200 mg elemental calcium) chewable tablet Chew 1 tablet (500 mg total) 1 (one) time each day. ibuprofen (ADVIL,MOTRIN) 600 mg tablet Take 1 Tablet by mouth every 6 hours as needed. loratadine (CLARITIN) 10 mg tablet TAKE 1 TABLET BY MOUTH EVERY DAY NEEDED FOR SEASONAL ALLERGIES 90 tablet 1 REISHI MUSHROOM EXTRACT ORAL Take by mouth. renal multivitamin (DIALYVITE-800 PLUS D) chewable tablet Chew 1 tablet 1 (one) time each day. ALLERGIES: Hazelnut, Tree nuts, Cat dander, Dog dander, and Grass pollen PHYSICAL EXAM: Blood pressure 118/82, pulse 78, temperature 36.2 ??C (97.2 ??F), temperature source Temporal, resp. rate 14, height 1.727 m (68 ), weight 84.4 kg (186 lb), SpO2 98%. Body mass index is 28.28 kg/m??.Plan is deferred until next visit APPEARANCE: Alert and in no acute distress EYES: PERRLA, conjunctiva and sclera normal HEART: RRR with normal S1 and S2, no murmurs, no gallops, no JVD appreciated LUNG: clear to auscultation bilaterally EXTREMITIES: Extremities warm and well perfused without clubbing, cyanosis, or edema NEURO: Awake, alert and oriented x 3 and Normal gait LABS: IMPRESSION: 1. Hubbard's esophagus without dysplasia 2. Hyponatremia 3. Leukocytosis, unspecified type 4. Esophageal stenosis 5. Dysphagia, unspecified type ASSESSMENT/PLAN: Carlos Alberto was seen today for follow-up. Diagnoses and all orders for this visit: Hubbard's esophagus without dysplasia (Primary) - Comprehensive metabolic panel; Future Hyponatremia - Cancel: Basic metabolic panel; Future Leukocytosis, unspecified type - CBC and differential; Future Esophageal stenosis Dysphagia, unspecified type Plan Patient is a 42-year-old male with history of GERD s/p Tiot fundoplication in 2011, esophageal stenosis s/p dilatation, Hubbard's esophagus (undergoing surveillance 2 to 3 years) who is here for follow-up visit. Patient is a 44-year-old male who is here for ER follow-up, patient was evaluated on 11/18/2024 at [facility] for numbness in both hands with intermittent chest pain. Vitals in the ER were temp 98.1, heart rate 78, blood pressure 154/88. Blood work WBC 7.8, hemoglobin 13.3,platelet 246, sodium 132, potassium 4.5, creatinine 0.95, magnesium 1.6, AST/ALT 37/51, alkaline phosphatase 91, high-sensitivity troponin negative, lipase 30, EKG reported to be normal. 12/08/2024 at [facility] ER for chronic pain. Patient reported history of chronic pain secondary to cervical radiculopathy and old T4 fractures/chronic neuropathy, patient reported feels abit heavier than usual. Patient reported that was working outside in the 100 degree weather. Vitals in the ER were temp 97.7, heart rate 91, respiratory rate 18, blood pressure 168/101, 98% onroom air. Blood work WBC 12.5, hemoglobin 12.3, platelet 214, sodium 130, potassium 3.9, creatinine 0.9, random glucose 149, AST/ALT 39/60, alkaline phosphatase 78, albumin 4.5, influenza/RSV/COVID-negative patient underwent x-ray of the cervical spine and thoracic spine which did not show any acute abnormality, severe degenerative changes at C5-C6.. Patient was started on IV fluids after approximately 250cc patient reported that he was feeling weird and requested that IV be taken out. Patient presents today for follow-up, he reports that has been having difficulty swallowing, cannotfinish his meal as when he is eating feels like the food is getting stuck going down the throat. Hehas history of esophageal stenosis, underwent EGD with dilatation last year. He also is history of Hubbard's esophagus, undergoing surveillance every 2 to 3 years, however he has been having to take ibuprofen because of neck pain, did see neurosurgery for the neck pain and was advised traction device which he has been using but does not seem to help, was also advised surgery if no improvement with traction device for which she will require follow-up with neurosurgery however he defers for now wa nts to follow-up with gastro first regarding the dysphagia. -Patient was referred to gastroenterology, I gave him a printout of the referral which has the phone number to call them and make an appointment. He will repeat CBC and CMP today. Follow up in about 2 months (around 02/21/2025) for Follow up. Orders Placed This Encounter Procedures CBC and differential Comprehensive metabolic panel No results found for this or any previous visit (from the past 4 weeks). Paulette Hollis MD on 12/21/2024 at 2:16 PM EDT documented in this encounter Plan of Treatment Upcoming Encounters Date Type Department Care Team (Late st Contact Info) Description 03/30/2025 8:45 AM EDT Office Visit [facility] [address] [place] [phone] Paulette Hollis MD [address] [place] [phone] documented as of this encounter Results * Comprehensive metabolic panel (12/21/2024 2:27 PM EDT) Sodium 137 133 - 145 mmol/L LAB CHEMISTRY METHOD 12/21/2024 5:29 PM [facility] Potassium 4.1 3.5 - 5.5 mmol/L LAB CHEMISTRY METHOD 12/21/2024 5:29 PM [facility] Chloride 104 96 - 110 mmol/L LAB CHEMISTRY METHOD 12/21/2024 5:29 PM [facility] CO2 28 21 - 32 mmol/L LAB CHEMISTRY METHOD 12/21/2024 5:29 PM [facility] Anion Gap 5 3 - 11 LAB CHEMISTRY METHOD 12/21/2024 5:29 PM [facility] Glucose 97 70 - 100 mg/dL LAB CHEMISTRY METHOD 12/21/2024 5:29 PM [facility] BUN 14 5 - 25 mg/dL LAB CHEMISTRY METHOD 12/21/2024 5:29 PM [facility] Creatinine 1.03 0.70 - 1.30 mg/dL LAB CHEMISTRY METHOD 12/21/2024 5:29 PM [facility] eGFR 92 >=60 mL/min/1. 73m2 LAB CHEMISTRY METHOD 12/21/2024 5:29 PM [facility] Comment:Calculation based on the Chronic Kidney Disease Epidemiology Collaboration (CKD-EPI) equation refit without adjustment for race. BUN/Creatinine Ratio 13.6 LAB CHEMISTRY METHOD 12/21/2024 5:29 PM [facility] Calcium 9.6 8.5 - 10.5 mg/dL LAB CHEMISTRY METHOD 12/21/2024 5:29 PM [facility] AST (SGOT) 25 10 - 42 unit/L LAB CHEMISTRY METHOD 12/21/2024 5:29 PM [facility] ALT (SGPT) 43 10 - 60 unit/L LAB CHEMISTRY METHOD 12/21/2024 5:29 PM [facility] Alkaline Phosphatase 95 42 - 121 unit/L LAB CHEMISTRY METHOD 12/21/2024 5:29 PM [facility] Total Protein 7.7 6.0 - 8.0 g/dL LAB CHEMISTRY METHOD 12/21/2024 5:29 PM [facility] Albumin 4.6 3.2 - 5.0 g/dL LAB CHEMISTRY METHOD 12/21/2024 5:29 PM [facility] Total Bilirubin 0.4 0.0 - 1.4 mg/dL LAB CHEMISTRY METHOD 12/21/2024 5:29 PM [facility] Blood Venous blood specimen / Unknown Venipuncture / Unknown 12/21/2024 2:27 PM EDT 12/21/2024 2:27 PM EDT us Paulette Hollis MD LAB BLOOD ORDERABLES Final Resul t [facility] [address] [place] [address], documented in this encounter Visit Diagnoses Diagnosis Hubbard's esophagus without dysplasia- Primary Hyponatremia Hyposmolality and/or hyponatremia Leukocytosis, unspecified type Esophageal stenosis Stricture and stenosis of esophagus Dysphagia, unspecified type documented in this encounter Historical Medications * This list may reflect changes made after this encounter. REISHI MUSHROOM EXTRACT ORAL Take by mouth. added in this encounter Additional Health Concerns Assessment Noted Time PHQ-9 Depression Total Score: 1 10/27/19 25 12:25 PM EDT documented as of this encounter Care Teams Web Producer Relationship Specialty Start Date End Date Paulette Hollis MD [address] [place] [phone] PCP - General Internal Medicine 02/25/22 documented as of this encounter
--- NOTE | ~2024-12-23 | XR_ITS ---
CLINICAL HISTORY: cp 1 view chest x-ray Comparison: CR/SR - XR CHEST 1V - 11/18/2024 12:20 PM EDT Findings: The lungs are clear. Normal size heart. No acute fracture. IMPRESSION: 1. No acute findings. This document has been electronically signed by: Jamal Jenkins MD on 12/23/2024 19:57:11
--- NOTE | ~2024-12-23 | CT_ITS ---
CLINICAL HISTORY: neck pain CT Head without contrast. CT angiography head and neck with contrast. 3D Postprocessing. Comparison: None provided Findings: HEAD CT: No intra-axial mass, midline shift, hydrocephalus, or acute hemorrhage. No significant atrophy-like change or white matter disease. The visualized paranasal sinuses and mastoid air cells are normal. The orbits are unremarkable. There is no acute fracture. HEAD AND NECK CTA: Aortic arch and cervical great vessels are patent. Intracranial arteries are patent. No aneurysm, dissection, or occlusion. No abnormal intracranial enhancement. The visualized thyroid gland is unremarkable. No cervical mass or fluid collection. Lung apices clear. No acute fracture. Moderate spondylosis at C5-C6 with disc space narrowing, endplate sclerosis, osteophytosis and facet arthropathy. IMPRESSION: 1. Unremarkable head CT. 2. Patent head and neck CTA. 3. Moderate spondylosis at C5-C6. This document has been electronically signed by: Jamal Jenkins MD on 12/23/2024 21:36:52
--- NOTE | 2024-12-23 13:08 | ECG_ITS ---
Test Reason : CP Blood Pressure : */* mmHG Vent. Rate : 88 BPM Atrial Rate : 88 BPM P-R Int : 136 ms QRS Dur : 100 ms QT Int : 356 ms P-R-T Axes : 67 41 34 degrees QTcB Int : 430 ms Normal sinus rhythm Normal ECG When compared with ECG of 03-May-2019 12:13, No significant change was found Referred By: Generic ED Physician Electronically Signed By: Ezekiel Schmitz
--- NOTE | 2024-12-23 13:24 | ED.CHESTPAIN ---
HPI - Chest Pain General Chief Complaint: Neck Pain/Injury Stated Complaint: l sided neck arm chest pain Time Seen by Provider: 12/23/24 17:34 Related Data Previous Rx's ?Medication ?Instructions ?Recorded acetaminophen 500 mg tablet 500 mg PO Q6H PRN fever or pain 10/29/22 (Tylenol Extra Strength) #14 tabs cyclobenzaprine 5 mg tablet 5 mg PO Q8H PRN pain (scale score 10/29/22 7-10) 5 days #14 tabs lidocaine 5 % topical patch 1 patch topical DAILY PRN pain #30 10/29/22 (Lidoderm) ea naproxen 500 mg tablet 500 mg PO BID PRN pain 10 days #20 10/29/22 tabs oxycodone 5 mg capsule 5 mg PO Q8H PRN pain (scale score 10/29/22 7-10) 3 days #9 caps cyclobenzaprine 5 mg tablet 5 mg PO Q8H PRN pain (scale score 02/03/23 7-10) 5 days #14 tabs lidocaine 5 % topical patch 1 patch topical DAILY PRN pain #30 02/03/23 (Lidoderm) ea lorazepam 1 mg tablet (Ativan) 1 mg PO BID PRN anxiety #14 tabs 09/12/23 lorazepam 1 mg tablet (Ativan) 1 mg PO BID PRN anxiety #10 tabs 11/06/23 prednisone 20 mg tablet 60 mg (3 x 20 mg) PO DAILY 5 days 11/06/23 #15 tabs Allergies Allergy/AdvReac Type Severity Reaction Status Date / Time No Known Allergies (NKA) Allergy Mild NOT Verified 12/23/24 13:30 APPLICABLE [facility] Past Medical History Medical History Osteoporosis Social History Social History Smoked in Last 30 Days: No Use of substances other than those prescribed or required for medical reasons: No Substance Use Type Other:: (CBD drops occasionally) Advance Directives: No Advance Directives Information Provided: No Do you have a plan to hurt others: No Plan Physical Exam Vital Signs: Vital Signs: Last Vital Signs Temp 97.8 F 12/23/24 21:14 Pulse 76 12/23/24 21:14 Resp 13 12/23/24 21:14 BP 141/86 H 12/23/24 21:14 Pulse Ox 98 12/23/24 21:14 O2 Del Method Room Air 12/23/24 21:14 BMI result Body Mass Index 28.7 Course Course Course Narrative: This is an RME: Additional HPI, ROS, PE not included below will be deferred to primary provider. RME assessment and note performed by: Nuvia Rodriguez PA-C This is a 73-mfop-mxq-male, with a hx of osteoporosis, cervical radiculopathy, hital hernia, barretts esophagus, who presents to the ER with complaints of near synope yesterday. Reports that he has a lump in the left side of his neck that he is supposed to see ENT for in the next couple of weeks, but suddenly felt pain in the left side of his neck, pain in his left shoulder. Concerns for a blood clot. Reporting heaviness, weakness. No recent travel, surgery, hospitalizations. Plan: Labs, EKG, further ER evaluation needed. Medications Administered Discontinued Medications Generic Name Dose Route Start Last Admin Trade Name Freq PRN Reason Stop Dose Admin Iohexol 100 ml 12/23/24 20:26 12/23/24 20:26 Iohexol 350 Mg/Ml 100 Ml Infus..Btl IV 12/23/24 20:27 70 ml ONCE ONE Administration Medical Decision Making Lab Data 12/23/24 16:13 12/23/24 16:13 Labs: Lab Results 12/23/24 12/23/24 12/23/24 Range/Units 16:12 16:13 18:36 WBC 8.7 (4.8-10.8) X10*3/uL RBC 4.53 L (4.60-5.80) X10*6/uL Hgb 13.6 L (14.0-18.0) g/dl Hct 38.0 L (42.0-52.0) % MCV 83.9 (80.0-98.0) fL MCH 30.0 (27.0-33.0) pg MCHC 35.8 (31.0-36.0) g/dl RDW 12.5 (11.0-16.0) % Plt Count 211 (160-400) X10*3/uL MPV 9.7 (9.4-12.4) fL Immature Gran % (Auto) 0.3 (0.0-0.4) % Neut % (Auto) 67.9 (45-73) % Lymph % (Auto) 26.2 (20-40) % [place] % (Auto) 4.5 (2-11) % Eos % (Auto) 0.8 (0-4) % Baso % (Auto) 0.3 (0-2) % Lymph # (Auto) 2.3 (1.2-4.9) X10*3/uL [place] # (Auto) 0.4 (0.1-1.2) X10*3/uL Eos # (Auto) 0.1 (0.0-0.4) X10*3/uL Baso # (Auto) 0.0 (0.0-0.2) X10*3/uL Abs Immat Gran (auto) 0.03 (0.00-0.03) X10*3/uL Absolute Neuts (auto) 5.9 (2.0-8.3) x10*3/uL Absolute Nucleated RBC 0.000 (0.0-0.012) X10*3/uL Nucleated RBC % (auto) 0.0 (0.0-0.2) /100WBC PT 11.4 (10.9-12.4) SEC INR 1.0 (0.9-1.1) D-Dimer High Sensitivty < 150 NG/ML Sodium 133 L (135-145) mmol/L Potassium 4.0 (3.3-5.1) mmol/L Chloride 101 (96-108) mmol/L Carbon Dioxide 22 (22-29) mmol/L Anion Gap 14 (12-20) BUN 11 (9-16) mg/dL Creatinine 0.96 (0.5-1.4) mg/dL Estim Creat Clear Calc 104.5 Estimated GFR > 60 Random Glucose 119 H (60-115) mg/dL Calcium 9.3 (8.4-10.2) mg/dL Magnesium 2.0 (1.6-2.6) mg/dL Total Bilirubin 0.4 (0.0-1.0) mg/dL Direct Bilirubin 0.1 (0.0-0.5) mg/dL AST 37 (5-37) U/L ALT 44 H (0-40) U/L Alkaline Phosphatase 90 (39-117) U/L Troponin I High Sens < 2.7 < 2.7 (<3.5-35.0) ng/L Total Protein 7.7 (6.5-8.0) g/dL Albumin 5.2 H (3.5-5.0) g/dL Lipase 36 (8-78) U/L Discharge Plan Discharge Clinical Impression: Cervical radiculopathy Patient Disposition: Home, Self-Care Instructions: Cervical Radiculopathy (ED) Prescriptions: No Action lorazepam [Ativan] 1 mg tablet 1 mg PO BID PRN (Reason: anxiety) Qty: 14 0RF lorazepam [Ativan] 1 mg tablet 1 mg PO BID PRN (Reason: anxiety) Qty: 10 0RF prednisone 20 mg tablet 60 mg PO DAILY 5 Days Qty: 15 0RF acetaminophen [Tylenol Extra Strength] 500 mg tablet 500 mg PO Q6H PRN (Reason: fever or pain) Qty: 14 0RF lidocaine [Lidoderm] 5 % adhesive patch,medicated 1 patch topical DAILY MDD remove after 12 hours PRN (Reason: pain) Qty: 30 0RF Rx Instructions: leave on most painful area for up to 12 hrs naproxen 500 mg tablet 500 mg PO BID PRN (Reason: pain) 10 Days Qty: 20 0RF cyclobenzaprine 5 mg tablet 5 mg PO Q8H PRN (Reason: pain (scale score 7-10)) 5 Days Qty: 14 0RF oxycodone 5 mg capsule 5 mg PO Q8H PRN (Reason: pain (scale score 7-10)) 3 Days Qty: 9 0RF Rx Instructions: Partial Fill upon patient request. lidocaine [Lidoderm] 5 % adhesive patch,medicated 1 patch topical DAILY MDD remove after 12 hours PRN (Reason: pain) Qty: 30 0RF Rx Instructions: leave on most painful area for up to 12 hrs cyclobenzaprine 5 mg tablet 5 mg PO Q8H PRN (Reason: pain (scale score 7-10)) 5 Days Qty: 14 0RF Referrals: Paulette Hollis MD [Primary Care Provider, Internal Medicine] - 3 days Print Language: Comoran
[2024-12-23 13:26] VITALS: BP 138/87; PULSE 98; RESP 18; TEMP 36.5; O2SAT 98; BMI 28.7
[2024-12-23 16:18] LABS: MANUAL DIFF FLAG NO
[2024-12-23 16:19] LABS: Hematocrit 38.0 % (42.0-52.0); Hemoglobin 13.6 g/dl (14.0-18.0); Imm Gran Abs Auto 0.03 X10*3/uL (0.00-0.03); Imm Gran Pct Auto 0.3 % (0.0-0.4); Lymphocytes Absolute Auto 2.3 X10*3/uL (1.2-4.9); Mean Corpuscular HGB Conc 35.8 g/dl (31.0-36.0); Mean Corpuscular Hemoglobin 30.0 pg (27.0-33.0); Mean Corpuscular Volume 83.9 fL (80.0-98.0); NRBC Abs Auto 0.000 X10*3/uL (0.0-0.012); NRBC Pct Auto 0.0 /100WBC (0.0-0.2); Platelet Count 211 X10*3/uL (160-400); Red Blood Count 4.53 X10*6/uL (4.60-5.80); White Blood Count 8.7 X10*3/uL (4.8-10.8)
[2024-12-23 16:25] LABS: INTERNATIONAL NORM RATIO 1.0 (0.9-1.1); Prothrombin Time 11.4 SEC (10.9-12.4)
[2024-12-23 16:34] LABS: Alanine Aminotransferase 44 U/L (0-40); Albumin Level 5.2 g/dL (3.5-5.0); Alkaline Phosphatase 90 U/L (39-117); Anion Gap 14 (12-20); Aspartate Amino Transferase 37 U/L (5-37); Blood Urea Nitrogen 11 mg/dL (9-16); Calcium 9.3 mg/dL (8.4-10.2); Carbon Dioxide 22 mmol/L (22-29); Chloride 101 mmol/L (96-108); Creatinine Clr Calc Pharmacy 104.5; Estimated Glomerular Filt Rate > 60; Lipase 36 U/L (8-78); Magnesium 2.0 mg/dL (1.6-2.6); Potassium 4.0 mmol/L (3.3-5.1); Sodium 133 mmol/L (135-145); Total Protein 7.7 g/dL (6.5-8.0)
[2024-12-23 16:46] LABS: Troponin-I High Sensitivity < 2.7 ng/L (<3.5-35.0)
--- OUTSIDE RECORDS SUMMARY | 2024-12-23 17:55 | XMS_ITS | Patient Health Record ---
Author Organization [facility] Address [address] [place] [address] Care Team Providers Care Tax Assessor Name Role Phone KimberlySegundotoni Dudley Primary Care Provider Unavailab [place] Unavailable [phone] Fidel Arroyo Unavailable Unavailable Allergies Allergen (clinical drug ingredient) Drug/Non Drug Allergy documented on EMR Reaction Allergy Type Onset Date Status dust mites (uncoded) Unknown Allergy Active bees (uncoded) Unknown Allergy Activ e Reason For Referral No Information Medications Medication SIG (Take, Route, Frequency, Duration) Notes Start Date End Date Status Ativan prn Active Pantoprazole Sodium 40 MG 1 tablet Orall y Once a day for 30 day(s) 10/15/2012 Active Problems Problem Type SNOMED Code ICD Code Onset Dates Problem Status W/U Status Risk Notes Problem Esophageal reflux (296975733) Esophageal reflux (530.81) Active confirmed Problem Hubbard's esophagus (530.85) Active confirmed Problem Weight decreased (440089221) Loss of weight (783.21) Active confirmed Problem Abdominal pain, epigastric (789.06) Active confirmed Problem Gastroesophageal reflux disease (302952847) GERD (gastroesophag eal reflux disease) (530.81) Active confirmed Plan Of Treatment Pending Test Test Name Order Date Amylase, Serum 03/13/2011 Lipase, Serum 03/13/2011 HIDA Scan 03/13/2011 Liver Function Test (LFT) 03/13/2011 Future Test Test Name Order Date UPPER GI ENDOSCOPY 02/18/2013 Insurance Providers Payer Name Payer Address Payer Phone Subscriber Number Group Number Insured Name Patient Relationship to Insured Coverage Start Date Coverage End Date [facility] [address] [place] [phone] [id number] JAYASHREE BAEZ Self - patient is the insured MEDICAID OF [facility] [address] [place] [phone] [id number] JAYASHREE BAEZ Self - patient is the insured Medical (General) History Medical History History ICD Code bipolar disease. anxiety Denies UT,DM,CVA,Lung disease,renal dise ase GERD/Hubbard's esophagus/hia sharron hernia--Upper endo in 03/2011 with a moderate-sized HH and long segment of Hubbard's--no dysplasia. Surgical History Surgery Date(Month/Year) hydrocele surgery as an broken wrist S/P Lap Tito in 11/[address] Arroyo
--- NOTE | 2024-12-23 18:23 | ED_ITS ---
HPI - General Adult General Chief complaint: Neck Pain/Injury Stated complaint: l sided neck arm chest pain Time Seen by Provider: 12/23/24 17:34 History of Present Illness HPI narrative: Patient is a 44-year-old male with a history of cervical radiculopathy 3 presents today with feeling pain on the side of his neck. He is worried about a blood clot there. He denies any leg swelling. No travel history. No history of instrumentation. No family history of blood clots. No history of cancer. Patient denies any focal weakness. No chest pain or diaphoresis. Patient is from home. Pain at the base of the neck on the left side. Related Data Previous Rx's ?Medication ?Instructions ?Recorded acetaminophen 500 mg tablet 500 mg PO Q6H PRN fever or pain 10/29/22 (Tylenol Extra Strength) #14 tabs cyclobenzaprine 5 mg tablet 5 mg PO Q8H PRN pain (scal e score 10/29/22 7-10) 5 days #14 tabs lidocaine 5 % topical patch 1 patch topical DAILY PRN pain #30 10/29/22 (Lidoderm) ea naproxen 500 mg tablet 500 mg PO BID PRN pain 10 da ys #20 10/29/22 tabs oxycodone 5 mg capsule 5 mg PO Q8H PRN pain (scale score 10/29/22 7-10) 3 days #9 caps cyclobenzaprine 5 mg tablet 5 mg PO Q8H PRN pain (scal e score 02/03/23 7-10) 5 days #14 tabs lidocaine 5 % topical patch 1 patch topical DAILY PRN pain #30 02/03/23 (Lidoderm) ea lorazepam 1 mg tablet (Ativan) 1 mg PO BID PRN anxiety #14 tabs 09/12/23 lorazepam 1 mg tablet (Ativan) 1 mg PO BID PRN anxiety #10 tabs 11/06/23 prednisone 20 mg tablet 60 mg (3 x 20 mg) PO DAILY 5 days 11/06/23 #15 tabs Allergies Allergy/AdvReac Type Severity Reaction Status Date / Time No Known Allergies (NKA) Allergy Mild NOT Verified 12/23/24 13:30 APPLICABLE Review of Systems 2 Review of Systems: No fever no chills no focal weakness Yes all other systems are reviewed and are negative [facility] Past Medical History Attestation statement: The following information was validated with the patient. Medical History Osteoporosis Social History Social History Smoked in Last 30 Days: No Use of substances other than those prescribed or required for medical reasons: No Substance Use Type Other:: (CBD drops occasionally) Advance Directives: No Advance Directives Information Provided: No Do you have a plan to hurt others: No Plan Physical Exam ED Vital Signs: Vital Signs - 24 hr 12/23/24 13:26 12/23/24 21:14 Temperature 97.7 F 97.8 F Pulse Rate 98 76 Respiratory Rate 18 13 Blood Pressure 138/87 141/86 H Pulse Oximetry 98 98 Oxygen Delivery Method Room Air Room Air BMI result Body Mass Index 28.7 Appearance: Alert. Oriented X3. No acute distress. Eyes: Pupils equal, round and reactive to light. ENT: Pharynx normal. Neck: Normal inspection. Neck supple. No lymph nodes noted. No crepitus CVS: Normal heart rate and rhythm. Pulses normal. Normal S1 and S2 Respiratory: No respiratory distress. Breath sounds normal. No Wheezing. No rales Abdomen: Soft and nontender. No rigidity. No distention. good BS x4 Skin: Skin warm and dry. Normal skin color. Normal skin turgor. Extremities: No lower extremity edema. Neurovascular intact to all extremities. No Lacerations. No Rash Neuro: Oriented X 3. No motor deficit. No sensory deficit. Moving all extermities. No slurred speech Medications Administered Discontinued Medications Generic Name Dose Route Start Last Admin Trade Name Adiel PRN Reason Stop Dose Admin Iohexol 100 ml 12/23/24 20:26 12/23/24 20:26 Iohexol 350 Mg/Ml 100 Ml Infus..Btl IV 12/23/24 20:27 70 ml ONCE ONE Administration Medical Decision Making Medical Decision Making MDM Narrative: Patient had multitude of complaints. Worry that he has a blood clot worry that he has a mass in his neck. Worry that he has a clot in his neck. Patient's D- dimer is negative. In the setting of low risk unlikely to have PE. Unlikely to have a blood clot. My interpretation patient's EKG showed a sinus rhythm heart rate is 90 VT QRS QTC normal there is no acute ST segment elevation. I reviewed radiology's interpretation of the CT head and neck angio. It was grossly negative. There is no large vessel occlusion. There is no mass there is no clots that is noted. Patient's troponin x2 sets were negative. History not consistent with ACS. No significant risk patient is 44 years old history knots anonymous with ACS heart score is less than 3. Patient chest x-ray by my interpretation showed no pneumonia no pneumothorax. Will discharge patient home. Close follow-up on an outpatient basis Differential Diagnosis Differential Diagnoses: The differential diagnosis associated with the presentation includes PE, pneumonia, pneumothorax, neck mass, blood clot Admission/Observation Consideration of admission/observation: Escalation of care including admission/observation considered Lab Data MDM Lab Attestation statement: I reviewed the patient's lab results. 12/23/24 16:13 12/23/24 16:13 Labs: Lab Results 12/23/24 12/23/24 12/23/24 Range/Units 16:12 16:13 18:36 WBC 8.7 (4.8-10.8) X10*3/uL RBC 4.53 L (4.60-5.80) X10*6/uL Hgb 13.6 L (14.0-18.0) g/dl Hct 38.0 L (42.0-52.0) % MCV 83.9 (80.0-98.0) fL MCH 30.0 (27.0-33.0) pg MCHC 35.8 (31.0-36.0) g/dl RDW 12.5 (11.0-16.0) % Plt Count 211 (160-400) X10*3/uL MPV 9.7 (9.4-12.4) fL Immature Gran % (Auto) 0.3 (0.0-0.4) % Neut % (Auto) 67.9 (45-73) % Lymph % (Auto) 26.2 (20-40) % [place] % (Auto) 4.5 (2-11) % Eos % (Auto) 0.8 (0-4) % Baso % (Auto) 0.3 (0-2) % Lymph # (Auto) 2.3 (1.2-4.9) X10*3/uL [place] # (Auto) 0.4 (0.1-1.2) X10*3/uL Eos # (Auto) 0.1 (0.0-0.4) X10*3/uL Baso # (Auto) 0.0 (0.0-0.2) X10*3/uL Abs Immat Gran (auto) 0.03 (0.00-0.03) X10*3/uL Absolute Neuts (auto) 5.9 (2.0-8.3) x10*3/uL Absolute Nucleated RBC 0.000 (0.0-0.012) X10*3/uL Nucleated RBC % (auto) 0.0 (0.0-0.2) /100WBC PT 11.4 (10.9-12.4) SEC INR 1.0 (0.9-1.1) D-Dimer High Sensitivty < 150 NG/ML Sodium 133 L (135-145) mmol/L Potassium 4.0 (3.3-5.1) mmol/L Chloride 101 (96-108) mmol/L Carbon Dioxide 22 (22-29) mmol/L Anion Gap 14 (12-20) BUN 11 (9-16) mg/dL Creatinine 0.96 (0.5-1.4) mg/dL Estim Creat Clear Calc 104.5 Estimated GFR > 60 Random Glucose 119 H (60-115) mg/dL Calcium 9.3 (8.4-10.2) mg/dL Magnesium 2.0 (1.6-2.6) mg/dL Total Bilirubin 0.4 (0.0-1.0) mg/dL Direct Bilirubin 0.1 (0.0-0.5) mg/dL AST 37 (5-37) U/L ALT 44 H (0-40) U/L Alkaline Phosphatase 90 (39-117) U/L Troponin I High Sens < 2.7 < 2.7 (<3.5-35.0) ng/L Total Protein 7.7 (6.5-8.0) g/dL Albumin 5.2 H (3.5-5.0) g/dL Lipase 36 (8-78) U/L Independent Interpretation I performed an independent interpretation of an: EKG (Sinus heart rate is 90 VT QRS QTC normal no acute ST segment elevation) Radiology Impression Discussion of test interpretation with radiology: I have reviewed the radiologist's reading. Social Determinants Patient?s care significantly limited by Social Determinants of Health including: Problems related to primary support group Discharge Plan Discharge Clinical Impression: Cervical radiculopathy Patient Disposition: Home, Self-Care Instructions: Cervical Radiculopathy (ED) Prescriptions: No Action lorazepam [Ativan] 1 mg tablet 1 mg PO BID PRN (Reason: anxiety) Qty: 14 0RF lorazepam [Ativan] 1 mg tablet 1 mg PO BID PRN (Reason: anxiety) Qty: 10 0RF prednisone 20 mg tablet 60 mg PO DAILY 5 Days Qty: 15 0RF acetaminophen [Tylenol Extra Strength] 500 mg tablet 500 mg PO Q6H PRN (Reason: fever or pain) Qty: 14 0RF lidocaine [Lidoderm] 5 % adhesive patch,medicated 1 patch topical DAILY MDD remove after 12 hours PRN (Reason: pain) Qty: 30 0RF Rx Instructions: leave on most painful area for up to 12 hrs naproxen 500 mg tablet 500 mg PO BID PRN (Reason: pain) 10 Days Qty: 20 0RF cyclobenzaprine 5 mg tablet 5 mg PO Q8H PRN (Reason: pain (scale score 7-10)) 5 Days Qty: 14 0RF oxycodone 5 mg capsule 5 mg PO Q8H PRN (Reason: pain (scale score 7-10)) 3 Days Qty: 9 0RF Rx Instructions: Partial Fill upon patient request. lidocaine [Lidoderm] 5 % adhesive patch,medicated 1 patch topical DAILY MDD remove after 12 hours PRN (Reason: pain) Qty: 30 0RF Rx Instructions: leave on most painful area for up to 12 hrs cyclobenzaprine 5 mg tablet 5 mg PO Q8H PRN (Reason: pain (scale score 7-10)) 5 Days Qty: 14 0RF Referrals: Paulette Hollis MD [Primary Care Provider, Internal Medicine] - 3 days Print Language: Hungarian
[2024-12-23 18:41] LABS: D Dimer High Sensitivity < 150 NG/ML
[2024-12-23 19:07] LABS: Troponin-I High Sensitivity < 2.7 ng/L (<3.5-35.0)
[2024-12-23] MEDS: iohexoL 350 MG/ML 100 ML INFUS..BTL IV (20:26)
[2024-12-23 21:14] VITALS: BP 141/86; PULSE 76; RESP 13; TEMP 36.6; O2SAT 98
[2024-12-24 04:56] VITALS: BP 141/86; PULSE 76; RESP 13; TEMP 36.6; O2SAT 98
== END 2024-12-23 23:50 | disposition home or self-care (01) ==
PROVIDERS: Physician Assistant Medical; Emergency Provider Emergency Medicine Emergency Medical Services; PCP Internal Medicine
DX: M54.12 Radiculopathy, cervical region (principal); Z79.899 Other long term (current) drug therapy
CPT/HCPCS: 36415; 70496; 70498; 71045; 80048; 80076; 83690; 83735; 84484; 85025; 85379; 85610; 93005; 99284; 99285; Q9967

== ENCOUNTER → 2024-12-23 13:08 | Outpatient (BNV) | payer OTHER, SELFPAY | PROVIDERS: Emergency Provider Emergency Medicine Emergency Medical Services; PCP Internal Medicine; Visit Provider Internal Medicine Cardiovascular Disease | DX: R07.89 Other chest pain (principal) | CPT/HCPCS: 93010 ==

== ENCOUNTER → 2024-12-23 18:16 | Outpatient (BNV) | payer OTHER, SELFPAY | PROVIDERS: Emergency Provider Emergency Medicine Emergency Medical Services; PCP Internal Medicine; Visit Provider Student in an Organized Health Care Education/Training Program | DX: M47.812 Spondylosis without myelopathy or radiculopathy, cervical region (principal); R07.9 Chest pain, unspecified | CPT/HCPCS: 70496; 70498; 71045 ==

== ENCOUNTER 2025-05-11 04:43 | Emergency (ER) | payer OTHER, SELFPAY ==
[2025-05-11] VITALS (9 sets, daily range): BP systolic 75–120; BP diastolic 50–76; PULSE 62–77; RESP 14–18; TEMP 36.3–36.5; O2SAT 98–100; BMI 29.2
--- NOTE | 2025-05-11 | ECG_ITS ---
Test Reason : SYNCOPE Blood Pressure : */* mmHG Vent. Rate : 66 BPM Atrial Rate : 66 BPM P-R Int : 126 ms QRS Dur : 108 ms QT Int : 404 ms P-R-T Axes : 18 60 63 degrees QTcB Int : 423 ms Normal sinus rhythm Normal ECG When compared with ECG of 23-Dec-2024 13:17, No significant change was found Referred By: Generic ED Physician Electronically Signed By: Ezekiel Schmitz
[2025-05-11 05:16] LABS: MANUAL DIFF FLAG NO
[2025-05-11 05:18] LABS: Hematocrit 40.8 % (42.0-52.0); Hemoglobin 13.9 g/dl (14.0-18.0); Imm Gran Abs Auto 0.03 X10*3/uL (0.00-0.03); Imm Gran Pct Auto 0.3 % (0.0-0.4); Lymphocytes Absolute Auto 2.7 X10*3/uL (1.2-4.9); Mean Corpuscular HGB Conc 34.1 g/dl (31.0-36.0); Mean Corpuscular Hemoglobin 29.6 pg (27.0-33.0); Mean Corpuscular Volume 86.8 fL (80.0-98.0); NRBC Abs Auto 0.000 X10*3/uL (0.0-0.012); NRBC Pct Auto 0.0 /100WBC (0.0-0.2); Platelet Count 256 X10*3/uL (160-400); Red Blood Count 4.70 X10*6/uL (4.60-5.80); White Blood Count 8.9 X10*3/uL (4.8-10.8)
--- NOTE | 2025-05-11 05:25 | ED_ITS ---
HPI - Dizziness General Chief Complaint: Syncope Stated Complaint: syncope, bradycardic Time Seen by Provider: 05/11/25 05:07 Source: patient and family Mode of arrival: ambulatory Limitations: no limitations History of Present Illness ED Provider: Dr. Marzena Castro HPI Narrative: Patient comes to the emergency room complaining of a syncopal episode. According to the patient, today he got up from his bed, started walking to the bathroom, he got to the bathroom he was very lightheaded and thought he was going to pass out. Patient walked back towards his bed but on his way back, patient passed out. Patient states he was at 430 seconds. Patient states that his heart rate was in the 40s. Patient denies any chest pain or any shortness of breath. Patient states that this has happened in the past in similar circumstances but he did not pass out the last time. At this time, patient states that he feels well, no chest pain, no shortness of breath, no dizziness. Patient states that when he collapsed at this time, he hit a for ensure and then went to the floor, this was witnessed by the patient's who states that the patient did not hit his head. Patient does not take any blood thinners. Related Data Previous Rx's ?Medication ?Instructions ?Recorded acetaminophen 500 mg tablet 500 mg PO Q6H PRN fever or pain 10/29/22 (Tylenol Extra Strength) #14 tabs cyclobenzaprine 5 mg tablet 5 mg PO Q8H PRN pain (scal e score 10/29/22 7-10) 5 days #14 tabs lidocaine 5 % topical patch 1 patch topical DAILY PRN pain #30 10/29/22 (Lidoderm) ea naproxen 500 mg tablet 500 mg PO BID PRN pain 10 da ys #20 10/29/22 tabs oxycodone 5 mg capsule 5 mg PO Q8H PRN pain (scale score 10/29/22 7-10) 3 days #9 caps cyclobenzaprine 5 mg tablet 5 mg PO Q8H PRN pain (scal e score 02/03/23 7-10) 5 days #14 tabs lidocaine 5 % topical patch 1 patch topical DAILY PRN pain #30 02/03/23 (Lidoderm) ea lorazepam 1 mg tablet (Ativan) 1 mg PO BID PRN anxiety #14 tabs 09/12/23 lorazepam 1 mg tablet (Ativan) 1 mg PO BID PRN anxiety #10 tabs 11/06/23 prednisone 20 mg tablet 60 mg (3 x 20 mg) PO DAILY 5 days 11/06/23 #15 tabs Allergies Allergy/AdvReac Type Severity Reaction Status Date / Time No Known Allergies (NKA) Allergy Mild NOT Verified 05/11/25 04:51 APPLICABLE Review of Systems 2 Review of Systems: Constitutional : No Weight loss, No Fever, No Chills, No Night Sweats, No Fatigue, No Malaise ENT/Mouth : No Hearing loss, No Ear Pain, No Nasal Congestion, No Sinus Pain, No Hoarseness, No sore throat, No Rhinorrhea, No Swallowing Difficulty Eyes: No Eye Pain, No Swelling, No Redness, No Foreign Body, No Discharge, No Vision Changes Cardiovascular : No Chest Pain, No SOB, No Dyspnea on Exertion, No Orthopnea, No Edema, No Palpitations, complaining of passing out after standing up too fast Respiratory : No Cough, No Sputum, No Wheezing, No Smoke Exposure, No Dyspnea Gastrointestinal : No Nausea, No Vomiting, No Diarrhea, No Constipation, No abdominal Pain, No Hematochezia, No Melena Genitourinary : no irregular bleeding, No Dysuria, No Urinary Frequency, No Hematuria, No Urinary Incontinence, No Urgency, No Flank Pain, No Urinary Flow Changes, No Hesitancy Musculoskeletal : No joint pain, No Myalgias, No Joint Swelling Skin : No Skin Lesions, No rash Neuro : No Weakness, No Numbness, No Paresthesias, No Loss of Consciousness, No Dizziness, No Headache Psych : No Anxiety/Panic, No Depression, No SI/HI/AH/VH, No Social Issues, Heme/Lymph: No Bruising, No Bleeding,No Lymphadenopathy Endocrine : No Polyuria, No Polydipsia, No Temperature Intolerance [facility] Past Medical History Medical History Osteoporosis Social History Social History Alcohol intake: never Smoked in Last 30 Days: Yes Use of substances other than those prescribed or required for medical reasons: No Advance Directives: No Advance Directives Information Provided: Yes Physical Exam 2 Exam: Exam: Appearance: Alert. Oriented X3. No acute distress. Eyes: Pupils equal, round and reactive to light. ENT: Pharynx normal. Neck: Normal inspection. Neck supple. No lymph nodes noted. No crepitus CVS: Normal heart rate and rhythm. Pulses normal. Normal S1 and S2 Respiratory: No respiratory distress. Breath sounds normal. No Wheezing. No rales Abdomen: Soft and nontender. No rigidity. No distention. Skin: Skin warm and dry. Normal skin color. Normal skin turgor. Extremities: No lower extremity edema. No Lacerations. No Rash Neuro: Oriented X 3. No motor deficit. No sensory deficit. Moving all extremities. No slurred speech. CN 2 through 12 grossly intact Psych: calm, cooperative, normal affect Vital Signs: Vital Signs: Last Vital Signs Temp 97.7 F 05/11/25 06:26 Pulse 73 05/11/25 06:26 Resp 14 05/11/25 06:26 BP 105/69 05/11/25 06:26 Pulse Ox 100 05/11/25 06:26 O2 Del Method Room Air 05/11/25 06:26 BMI result Body Mass Index 29.2 Course Course Course Narrative: Orthostatic vitals were obtained. Patient's blood pressure dropped from 06/16 systolic to 75. Patient was diaphoretic and very dizzy. Patient recorded fast by sitting down. Patient is receiving 2 L of IV fluids Patient denies any recent episodes of vomiting diarrhea or any reason to be dehydrated. Patient does not take any blood pressure medications. Labs pending Medications Administered Generic Name Dose Route Start Last Admin Trade Name Freq PRN Reason Stop Dose Admin Sodium Chloride 1,000 mls @ 999 mls/hr 05/11/25 05:30 05/11/25 06:08 Ns IV 05/11/25 07:30 999 mls/hr .Q1H1M [facility] Administration Medical Decision Making Medical Decision Making [facility] Narrative: My interpretation of EKG: Normal sinus rhythm, heart rate 66, no ST segment depression or elevation, no T-wave inversion, QTC 423 My interpretation of labs: No significant abnormality patient's hematology , normal chemistry, normal troponin After 2 L of IV fluids, orthostatic vitals were done, patient no longer feeling lightheaded or dizzy. Patient is asymptomatic Differential Diagnosis Differential Diagnoses: The differential diagnosis associated with the presentation includes (Orthostatic hypotension, vasovagal syncope, cardiac arrhythmia) Admission/Observation Consideration of admission/observation: Escalation of care including admission/observation considered (Given patient's significant drop in blood pressure, observation was considered) Lab Data MDM Lab Attestation statement: I reviewed the patient's lab results. 05/11/25 05:12 05/11/25 05:12 Labs: Lab Results 05/11/25 Range/Units 05:12 WBC 8.9 (4.8-10.8) X10*3/uL RBC 4.70 (4.60-5.80) X10*6/uL Hgb 13.9 L (14.0-18.0) g/dl Hct 40.8 L (42.0-52.0) % MCV 86.8 (80.0-98.0) fL MCH 29.6 (27.0-33.0) pg MCHC 34.1 (31.0-36.0) g/dl RDW 11.9 (11.0-16.0) % Plt Count 256 (160-400) X10*3/uL MPV 9.5 (9.4-12.4) fL Immature Gran % (Auto) 0.3 (0.0-0.4) % Neut % (Auto) 62.7 (45-73) % Lymph % (Auto) 30.5 (20-40) % [place] % (Auto) 4.3 (2-11) % Eos % (Auto) 1.7 (0-4) % Baso % (Auto) 0.5 (0-2) % Lymph # (Auto) 2.7 (1.2-4.9) X10*3/uL [place] # (Auto) 0.4 (0.1-1.2) X10*3/uL Eos # (Auto) 0.2 (0.0-0.4) X10*3/uL Baso # (Auto) 0.0 (0.0-0.2) X10*3/uL Abs Immat Gran (auto) 0.03 (0.00-0.03) X10*3/uL Absolute Neuts (auto) 5.6 (2.0-8.3) x10*3/uL Absolute Nucleated RBC 0.000 (0.0-0.012) X10*3/uL Nucleated RBC % (auto) 0.0 (0.0-0.2) /100WBC Sodium 138 (135-145) mmol/L Potassium 4.2 (3.3-5.1) mmol/L Chloride 106 (96-108) mmol/L Carbon Dioxide 22 (22-29) mmol/L Anion Gap 14 (12-20) BUN 14 (9-16) mg/dL Creatinine 0.88 (0.5-1.4) mg/dL Estim Creat Clear Calc 114.9 Estimated GFR > 60 Random Glucose 135 H (60-115) mg/dL Calcium 9.1 (8.4-10.2) mg/dL Total Bilirubin 0.3 (0.0-1.0) mg/dL AST 35 (5-37) U/L ALT 45 H (0-40) U/L Alkaline Phosphatase 99 (39-117) U/L Troponin I High Sens < 2.7 (<3.5-35.0) ng/L Total Protein 7.3 (6.5-8.0) g/dL Albumin 4.9 (3.5-5.0) g/dL Independent Interpretation I performed an independent interpretation of an: EKG Critical Care Time Critical Care Time Critical Care Time: Yes Total Critical Care Time: 45 Attestation: I have personally provided critical care time. Time includes review of lab data, radiology results, discussion with consultants, and monitoring for potential decompensation. Intervention performed as documented. Discharge Plan Discharge Clinical Impression: Orthostatic hypotension Patient Disposition: Home, Self-Care Instructions: Hypotension (ED) Additional Instructions: Please follow-up with your primary care physician tomorrow. If you have any worsening or new symptoms, please return to the emergency room or call 911 Prescriptions: No Action lorazepam [Ativan] 1 mg tablet 1 mg PO BID PRN (Reason: anxiety) Qty: 14 0RF lorazepam [Ativan] 1 mg tablet 1 mg PO BID PRN (Reason: anxiety) Qty: 10 0RF prednisone 20 mg tablet 60 mg PO DAILY 5 Days Qty: 15 0RF acetaminophen [Tylenol Extra Strength] 500 mg tablet 500 mg PO Q6H PRN (Reason: fever or pain) Qty: 14 0RF lidocaine [Lidoderm] 5 % adhesive patch,medicated 1 patch topical DAILY MDD remove after 12 hours PRN (Reason: pain) Qty: 30 0RF Rx Instructions: leave on most painful area for up to 12 hrs naproxen 500 mg tablet 500 mg PO BID PRN (Reason: pain) 10 Days Qty: 20 0RF cyclobenzaprine 5 mg tablet 5 mg PO Q8H PRN (Reason: pain (scale score 7-10)) 5 Days Qty: 14 0RF oxycodone 5 mg capsule 5 mg PO Q8H PRN (Reason: pain (scale score 7-10)) 3 Days Qty: 9 0RF Rx Instructions: Partial Fill upon patient request. lidocaine [Lidoderm] 5 % adhesive patch,medicated 1 patch topical DAILY MDD remove after 12 hours PRN (Reason: pain) Qty: 30 0RF Rx Instructions: leave on most painful area for up to 12 hrs cyclobenzaprine 5 mg tablet 5 mg PO Q8H PRN (Reason: pain (scale score 7-10)) 5 Days Qty: 14 0RF Stand Alone Forms: Work/School Release Print Language: Mongolian
[2025-05-11 05:31] LABS: Alanine Aminotransferase 45 U/L (0-40); Albumin Level 4.9 g/dL (3.5-5.0); Alkaline Phosphatase 99 U/L (39-117); Anion Gap 14 (12-20); Aspartate Amino Transferase 35 U/L (5-37); Blood Urea Nitrogen 14 mg/dL (9-16); Calcium 9.1 mg/dL (8.4-10.2); Carbon Dioxide 22 mmol/L (22-29); Chloride 106 mmol/L (96-108); Creatinine Clr Calc Pharmacy 114.9; Estimated Glomerular Filt Rate > 60; Potassium 4.2 mmol/L (3.3-5.1); Sodium 138 mmol/L (135-145); Total Protein 7.3 g/dL (6.5-8.0)
--- OUTSIDE RECORDS SUMMARY | 2025-05-11 05:35 | XMS_ITS | Encounter Summary ---
Author Organization [facility] Address [address] [place] [phone] Phone Care Team Providers Care Manager [employer] Content [employer] Name Role Phone Xavier Harris MD Primary Care Provider [phone] Sheldon Jalloh MD Unavailable [phone] Encounter Details Date Type Department Care Team (Late st Contact Info) Description 09/19/2020 Prep for Surgery VIRTUAL DEPARTMENT [address] [place] [phone] Alma Isbell CNP [address] [place] [phone] [email or web address] Social History Tobacco Use Types Packs/Day Years Used Date Smoking Tobacco: Some Days Cigarettes Smokeless Tobacco: Never Comments:once every 2 weeks; cut way back Alcohol Use Standard Drinks/Week Comments Not Currently 0 (1 standard drink = 0.6 oz pur e alcohol) Sex and Gender Information Value Date Recorded Sex Assigned at Male 08/25/2020 9:15 AM EST Legal Sex Male 5:45 PM EST Gender Identity Male 08/25/2020 9:15 AM EST Sexual Orientation Straight 08/25/2020 9: 15 AM EST documented as of this encounter Plan of Treatment Not on file documented as of this encounter Visit Diagnoses Not on filedocumented in this encounter Care Teams Manager [employer] Content Management Relationship Specialty Start Date End Date Xavier Harris MD [address] [place] [address] PCP - General Internal Medicine 08/10/15 Sheldon Jalloh MD [address] [place] [address] Gastroenterology 11/13/22 documented as of this encounter Additional Source Comments The information contained in this document represents components of the legal health record. It is not the complete legal health record.[facility]
--- OUTSIDE RECORDS SUMMARY | 2025-05-11 05:35 | XMS_ITS | Patient Health Record ---
Author Organization [facility] Address [address] [place] [address] Care Team Providers Care Building Official Name Role Phone Sunshine Harris Primary Care Provider Unavailab Chuy Park Unavailable [phone] Fidel Arroyo Unavailable Unavailable Allergies Allergen (clinical drug ingredient) Drug/Non Drug Allergy documented on EMR Reaction Allergy Type Onset Date Status bees (uncoded) Unknown Allergy Activ e dust mites (uncoded) Unknown Allergy Active Reason For Referral No Information Medications Medication SIG (Take, Route, Frequency, Duration) Notes Start Date End Date Status Ativan prn Active Pantoprazole Sodium 40 MG Tablet Delayed Release 1 tablet Orally Once a day; Duration: 30 day(s) 10/15/2012 Active Social History Social History Additional Details Category Social Info Options Details Miscellaneous: Marital status: single 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 Section Notes: He reports that he has stopp ed smoking since he was here last. He reports that he has stopp ed smoking since he was here last, and has not been using alcohol for approx. 2 years He reports that he has stopp ed smoking since he was here last, and has not been using alcohol for approx. 2 years He reports that he has stopp ed smoking since he was here last, and has not been using alcohol for approx. 2 years He is currently not smoking, and has not been using alcohol for approx. 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 [address] [id number] JAYASHREE BAEZ Self - patient is the insured Medical (General) History Medical History History ICD Code bipolar disease. anxiety Denies TN,DM,CVA,Lung disease,renal dise ase GERD/Hubbard's esophagus/hia sharron hernia--Upper endo in 03/2011 with a moderate-sized HH and long segment of Hubbard's--no dysplasia. Surgical History Surgery Date(Month/Year) hydrocele surgery as an broken wrist S/P Lap Tito in 11/[address] Arroyo
--- OUTSIDE RECORDS SUMMARY | 2025-05-11 05:35 | XMS_ITS | Encounter Summary ---
Author Organization [facility] Address [address] [place] [address] [place] [address] Phone Care Team Providers Care Conche Loader And Unloader Name Role Phone Xavier Harris MD Primary Care Provider [phone] Sheldon Jalloh MD Unavailable [phone] Encounter Details Date Type Department Care Team (Late st Contact Info) Description 01/11/2025 Procedure Pass [facility] [place] JOVANY 4 ENDO DEPT [address] [facility], [address]th [place] [address] Social History Tobacco Use Types Packs/Day Years Used Date Smoking Tobacco: Former Cigarettes Smokeless Tobacco: Never Comments:Quit ~1.5 months ag o Alcohol Use Standard Drinks/Week Comments Not Currently 0 (1 standard drink = 0.6 oz pur e alcohol) Education Answer Date Recorded Are you interested in more education? Not on vida e 10/23/2022 Are you concerned about learning? Not on file 10/23/2022 No 10/23/2022 No 10/23/2022 Digital Access Answer Date Recorded No 11/10/2022 No 11/10/2022 Reliable internet access at home? Not on file 11/10/2022 Device with a working camera? Not on file Intimate Partner Violence Answer Date R ecorded Are you denied basic needs s uch as food, clothing, or medical care? No 01/11/2025 In the past 12 months have y ou been in a relationship with a person who hurts, threatens, or tries to control you? No 01/11/2025 Are you denied basic needs s uch as food, clothing, or medical care? No 01/11/2025 In the past 12 months have y ou been in a relationship with a person who hurts, threatens, or tries to control you? No 01/11/2025 Sex and Gender Information Value Date Recorded Sex Assigned at Male 08/25/2020 9:15 AM EST Legal Sex Male 5:45 PM EST Gender Identity Male 08/25/2020 9:15 AM EST Sexual Orientation Straight 08/25/2020 9: 15 AM EST documented as of this encounter Plan of Treatment Not on file documented as of this encounter Visit Diagnoses Not on filedocumented in this encounter Care Teams Conche Loader And Unloader Relationship Specialty Start Date End Date Xavier Harris MD [address] [place] [address] PCP - General Internal Medicine 08/10/15 Sheldon Jalloh MD [address] [place] [address] Gastroenterology 11/13/22 documented as of this encounter Additional Source Comments The information contained in this document represents components of the legal health record. It is not the complete legal health record.[facility]
--- OUTSIDE RECORDS SUMMARY | 2025-05-11 05:35 | XMS_ITS | Encounter Summary ---
Author Organization [facility] Address [address] [place] [address] Phone Care Team Providers Care Community Services Officer Name Role Phone Xavier Harris MD Primary Care Provider [phone] Sheldon Jalloh MD Unavailable [phone] Encounter Details Date Type Department Care Team (Late st Contact Info) Description 08/29/2021 Procedure Pass [facility] [place] [facility]ANY [address] [facility], 4th [place] [address] Social History Tobacco Use Types Packs/Day Years Used Date Smoking Tobacco: Former Cigarettes Smokeless Tobacco: Never Comments:once every 2 [...] on filedocumented in this encounter Care Teams Community Services Officer Relationship Specialty Start Date End Date Xavier Harris MD [address] [place] [address] PCP - General Internal Medicine 08/10/15 Sheldon Jalloh MD [address] [place] [address] Gastroenterology 11/13/22 documented as of this encounter Additional Source Comments The information contained in this document represents components of the legal health record. It is not the complete legal health record.[facility]
--- OUTSIDE RECORDS SUMMARY | 2025-05-11 05:35 | XMS_ITS | Data Portability ---
Author Organization [facility] Address [address] [place] [address] Care Team Providers Care Hand Icer Name Role Phone SAL ESQUIVEL Primary Care Provider Assessment Encounter Date Assessment Date Assessment LastModified by Organization Details LastModified Time 02/03/2025 02/03/2025 44-year-old man with neck pain and upper extremity dysesthesias. Diagnosis cervical spondylosis. Present over the last 10 years and somewhat worse over the last 2. MRI recently obtained unremarkable for any nerve root or spinal cord compression at any level cervical spine. Do not see a role for aggressive management about may respond to a cervical epidural steroid injection. I will refer him for an evaluation and follow-up thereafter. Natural history reviewed and questions answered. This patient has debilitating back and radiating leg pain refractory to conservative care, thus far. I have recommended a referral for injection evaluation. Risks and benefits reviewed. I have explained that I do not perform spinal injections and we will refer the patient to a pain management group that does such injections on a routine basis. [email or web address] Not available 02/03/2025 12:23:55 Plan of Treatment Reminders Order Date Submit Date Provider Last Modified By Organization Details Last Modified Time Details Appointments None recorded. Lab None recorded. Referral pain management referral - eval for cervical injections 2024 025 [email or web address] Not available 15:18:05 Procedures None recorded. Surgeries None recorded. Imaging XR, cervical spine, 2 or 3 view - 320 cervical 2v 2024 025 [email or web address] [facility], [address], [address], [place], [address], 15:18:05 Medication Orders None recorded. Patient TargetsNo targets recorded. Patient InstructionsNo instructions recorded. Reason for Referral Pain Management Referral for Neck pain eval for cervical injections Referring Physician: Chuy Best, Orthopedic Surgery, Encounter Date: 02/03/2025 Results Created Date Observation Date Name Description Value Unit Range Abnormal Flag Note LastModifiedBy Organization Detail LastModifiedTime 02/04/2002/03/2025 XR, cervi angelita spine , 2 or 3 view http:/ [email or web address] ?Encry pted=s hAaTro YD8dLq bEUv6g %2BXZw aYqtaq 0bqfl% 2Fg9IQ a4ajBk vP9nXo QUaueC m3YtLR FvZlgJ JJ8mAn HZtai3 5x6355 AC0Klb 36NUaq nKiQtr MwF INTERFACE [employer] [facility] [address], [place], [address], 02/03/2025 11:22:44 02/04/20 25 02/03/2025 XR, cervi angelita spine , 2 or 3 view http:/ [email or web address] ?Encry pted=s hAaTro YD8dLq bEUv6g %2BXZw aYqtaq 0bqfl% 2Fg9IQ a4ajBk vP9nXo QUaueC m3YtLR FvZl J8[facility] 7i7781 AC0Klb 36NUaq nKiQtr MwF INTERFACE [employer] [facility] [address], [place], [address], 02/03/2025 11:22:46 Result Notes Documentation Provider Name and Address Organization Details Recorded Time Xr, Cervical Spine, 2 Or 3 View : [email or web address] Encrypted=uhEfMufMK2eWyqF Uv6g%3JCSwhFukqj7qsqe%2Fg 9OIs1xtOfkN3rRyYUkwgUb8Lg EXZcZjrMHC4fZgBNaxo79p744 2XQ6Skk80PYtybJyMigNgK Not Available [facility] 02/03/2025 11:22: 45 Xr, Cervical Spine, 2 Or 3 View : [email or web address] Encrypted=maRvTuuYZ0pLvvC Uv6g%5FVUpfSffaw0rrjl%2Fg 4KRb3uzTgfT8sQmRBvhtWn5Wg CTDkOscLAT3tUjXOpkj65f804 3EY0Oqw90JDlwpGqApjDyT Not Available [facility] 02/03/2025 11:22: 47 Problems Name Problem SNOMED Code Status Onset Date Resolution Date Notes Provider Name and Address Organization Details Recorded Time No complaints 499437866 Active Status : 'I'; Not Available [facility] 09:15:38 Problem Notes None recorded. Procedures Surgical History Date Name Laterality Status Provider Name and Address Organization Details Recorded Time 12/29/19 11 Gastrointestinal Surgery completed Lindsay ortiz [facility] 02/03/2025 11:00:50 12/26/19 11 Gastrointestinal Surgery completed Lindsay ortiz [facility] 02/03/2025 11:00:50 Imaging Results None recorded. Procedure Notes None recorded. Medical Equipment None Reported. Allergies Allergen ID Allergen Name Allergen Category Reaction Reaction Severity Criticality Documentation Date Start Date Code Code System Note Provider Name and Address Organization Details Recorded Time 088703 grass pollen environme nt,medica tion Not available Not available Not available 02/03/2025 Lindsay maldonado [facility] 5 11:00:50 03976 hazelnut allergeni c extract food Not available Not available Not available 08/18/20232022 79078 3 RxNorm Not Available [facility] 14:14:24 Medications Name Sig Start Date Stop Date Status Note LastModified by Organization Details LastModified Time oxycodone HCl-oxycod one-ASA DO NOT DRIVE WHILE ON THIS MEDICATION 01/31 completed Statu s: 'Curr ent'; Not Available Not Available Not Available Vitals None Recorded Social History Question Answer Notes LastModified by Organizat ion Details LastModified Time Tobacco Smoking Status Former Smoker Lindsay maldonado [place] - [facility] 02/03/2025 11:00:50 When Did You Quit Smoking? 1-5yearssince lastcigarette [email or web address] Information not available 02/03/2025 What Is Your Relationship Status? Domestic Partner [email or web address] Information not available 02/03/2025 Sex: Unknown Functional Status Question Answer Note LastModified by Organizat ion Details LastModified Time Do you use any illicit or recreational drugs? No [email or web address] Information not available 02/03/2025 Mental Status None recorded. Family History Nothing Reported. Medical History No medical history recorded. Past Encounters Encounter ID Performer Location Encounter Start Date Encounter Closed Date Diagnosis/Indication Diagnosis SNOMED-CT Code Diagnosis ICD10 Code Diagnosis IMO Codes Diagnosis Note [id number] Chuy Best MD [facility] [place] [address] [place] [address] 02/03/2025 10:00:40 02/11/2025 15:18:05 Neck pain 07437946 M54.2 [address] Health Concerns Section Related Observation LastModified by Organization Detai ls LastModified Time None Recorded Concern Status LastModified by Organization Details LastModified Time None Recorded Advance Directives Directive None Recorded Payers Insurance Date Sequence Insurance Name Policy Number Policy Lemus Covered Member ID Lemus Member ID Guarantor Name 02/11/2025 1 [facility] - [facility] (MEDICAID REPLACEMENT - HMO) RISSA Carlos lAberto Rodriguez [id number] Carlos Alberto Rodriguez Notes Date Note Type Note Provider Name and Address Organization Details Recorded Time 02/03/2025 text/html ROS as noted in the HPI HPI: 44-year-old man presents with neck pain and bilateral upper extremity dysesthesias present over the course of the last 10 years. Somewhat worse over the last 2 years. He did have a skateboard accident and sustained a T4 compression fracture at that time. No focal deficits noted in the evaluation and it healed uneventfully. Pain remains 8 out of 10. Dysesthesias are episodic. Awakens him at night. Can radiate as far distally as his hands. No balance issues or fine motor skill deterioration and no bowel or bladder complaints described.PFMSH and ROS has been reviewed, updated and is located in the patient s chart.TREATMENT: Minimal careMEDICATIONS: Motrin and TylenolWORK STATUS: FarmerIMAGING: MRI obtained last month reviewed in detail. Study notable for diffuse spondylosis and loss of normal cervical lordosis but no evidence of any spinal cord or nerve root compression identified at any level. No surgical lesions.X-RAY REPORT: X-rays ordered, obtained and reviewed at [facility]. Not indicated Chuy Best MD [address] [place] [address] [address], [place], [address], [facility] [place] [facility] 02/03/2025 12:24:13
--- OUTSIDE RECORDS SUMMARY | 2025-05-11 05:35 | XMS_ITS | Encounter Summary ---
Author Organization [facility] Address [address] [place] [address] Phone Care Team Providers Care Tobacco Prevention Health Educator Name Role Phone Xavier Harris MD Primary Care Provider [phone] Sheldon Jalloh MD Unavailable [phone] Encounter Details Date Type Department Care Team (Late st Contact Info) Description 09/22/2020 Procedure Pass [facility] [place] [facility] [address] [place] [phone] Social History Tobacco Use Types Packs/Day Years [...] on filedocumented in this encounter Care Teams Tobacco Prevention Health Educator Relationship Specialty Start Date End Date Xavier Harris MD [address] [place] [address] PCP - General Internal Medicine 08/10/15 Sheldon Jalloh MD [address] [place] [address] Gastroenterology 11/13/22 documented as of this encounter Additional Source Comments The information contained in this document represents components of the legal health record. It is not the complete legal health record.[facility]
--- OUTSIDE RECORDS SUMMARY | 2025-05-11 05:36 | XMS_ITS | Clinical Summary ---
Author Organization 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 Active calcium carbonate 500 mg (200 mg elemental) chewable tablet Take 1 tablet by mouth daily as needed for heartburn. Active loratadine (CLARITIN) 10 mg tablet Take 10 mg by mouth daily. Active Medication-Free Text Take 1 capsule by mouth daily. Herbal mushrooms supplement Active cholecalciferol (VITAMIN D3) 5,000 unit capsule Take by mouth. Activ e acetaminophen (TYLENOL) 500 MG tablet Take 500 mg by mouth. Active ibuprofen (ADVIL,MOTRIN) 200 MG tablet Take 200 mg by mouth every 6 (six) hours as needed for pain (specific location in comments). 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 Negative for dysplasia. Tito Fundoplication in 05/2012 Dr. Arroyo. 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 Recommend repeat upper endoscopy in 2 years. Osteoporosis 09/22/2014 Hyperlipidemia 07/02/2014 Vitamin D deficiency 07/02/2014 Tattoo of skin 09/21/2013 Bipolar affective disorder 05/26/2013 Overview (04/14/2020): Overview: Getting ativan from Steph Jerome at [facility] for anxiety symptoms Hiatal hernia 05/26/2013 Social History Tobacco Use Types Packs/Day Years Used Date Smoking Tobacco: Former Cigarettes Smokeless Tobacco: Never Tobacco Cessation:Counseling Given: Not Answered Comments:Quit ~1.5 months ago Alcohol Use Standard Drinks/Week Comments Not Currently [...] ecorded Are you denied basic needs s [facility] as food, clothing, or medical care? No 01/11/2025 In the past 12 months have y ou been in a relationship with a person who hurts, threatens, or tries to control you? No 01/11/2025 Are you denied basic needs s [facility] as food, clothing, or medical care? No [...] Orientation Straight 08/25/2020 9: 15 AM EST Last Filed Vital Signs Vital Sign Reading Time Taken Comments Blood Pressure 130/88 01/11/2025 3:50 PM EDT Pulse 71 01/11/2025 3:50 PM EDT Temperature 36.3 C (97.4 F) 01/11/2025 2:30 PM EDT Respiratory Rate 28 01/11/2025 3:50 PM EDT Oxygen Saturation 97% 01/11/2025 3:50 PM EDT Inhaled Oxygen Concentration - - Weight 81.2 kg (179 lb) 01/03/2025 3:58 PM EDT Height 172.7 cm (5' 8 ) 01/03/2025 3:58 PM EDT Body Mass Index 27.22 01/03/2025 3:58 PM EDT Plan of Treatment Health Maintenance Due Date Last Done Comments DEPRESSION SCREENING 1992 SMOKING Hx and SMOKELESS TOBACCO SCREENING 1993 HEPATITIS C SCREENING 1998 HIV ONE-TIME SCREENING (18-6 5 YEARS) 1998 SCREENING FOR DIABETES 2015 Adult Td,Tdap Booster 07/14/2023 07/14/2013 INFLUENZA VACCINE (#1) 2025 COVID-19 VACCINE (2024-2 6 season) 2025 12/06/2020, 11/15/2020 EGD 01/12/2028 01/11/2025 LIPID PANEL 10/09/2028 10/10/2023 HEPATITIS A VACCINES Aged Out No long er eligible based on patient's age to complete this topic HIB VACCINES Aged Out No longer eligi ble based on patient's age to complete this topic MENINGOCOCCAL VACCINES (ACWY) Aged Out No longer eligible based on patient's age to complete this topic MENINGOCOCCAL VACCINES (B) Aged Out N o longer eligible based on patient's age to complete this topic PNEUMOCOCCAL VACCINES (0-49 years) Aged Out No longer eligible b ased on patient's age to complete this topic Medical Devices Not on file Insurance [facility] [place] [address] [place] [address] [place] [address] [place] [address] [address] [place] [address] [place] [address] [place] [address] [place] [address] [place] [address] [address] [place] [address] [facility] ACO Care Teams Technical Applications Specialist Relationship Specialty Start Date End Date Xavier Harris MD [address] [place] [address] PCP - General Internal Medicine 08/10/15 Sheldon Jalloh MD [address] [place] [address] Gastroenterology 11/13/22 Additional Source Comments The information contained in this document represents components of the legal health record. It is not the complete legal health record.[facility]
--- OUTSIDE RECORDS SUMMARY | 2025-05-11 05:36 | XMS_ITS | Clinical Summary ---
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 Active loratadine (CLARITIN) 10 mg tablet TAKE 1 TABLET BY MOUTH EVERY DAY NEEDED FOR SEASONAL ALLERGIES 90 tablet 1 5 Active REISHI MUSHROOM EXTRACT ORAL Take by mouth. Ac tive cyclobenzaprine (FLEXERIL) 5 mg tabletIndications :Cervical spondylosis Take 1 tablet (5 mg total) by mouth at bedtime as needed for muscle spasms. 30 tablet 5 05/29/20 25 Active Active Problems Problem Noted Date Diagnosed Date Chronic low back pain with sciatica 11/17/2023 Overview (2024): Last Assessment & Plan: Mr. Baez has a history of a lumbar herniated [...] Overview (2024): Last Assessment & Plan: Mr. Baez continues to describe daily neck pain with [...] little short. An upper extremity EMG at [facility] performed by Dr. Crane on [...] the plan and a prescription was given. Assessment & Plan (01/06/2025 3:34 PM EDT): Mr. Baez continues to have neck pain with turning in this general feeling of heaviness and fatigue in his arms and legs. He has had CT imaging of his neck but not a new MRI of the cervical spine. The previous 1 did show loss of disc height and foraminal narrowing at C5-6 but no clear cord compression. I do not suspect myelopathy but would offer surgery anyway since these limitations affect him every day and affect his line of work. 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 He is limited with medication because of his hiatal hernia despite repair. Using a spine model, we discussed the details, risk, benefits and anticipated postoperative course of a C5-6 ACDF with plating. He has osteoporosis so I would use a titanium device with DBM. He has been trying to wait as long as possible for surgery and would like to give the new traction device to try before committing. I agree with this as there is no focal weakness and he will go ahead and set up delivery with [employer]. Dyskinesia of esophagus 05/30/2022 Osteoporosis 09/22/2014 Hyperlipidemia 07/02/2014 Vitamin D deficiency 07/02/2014 Esophageal stenosis 05/26/2013 Overview (2024): Initially discovered on upper endoscopy on 03/20/2011. Negative for dysplasia. Tito Fundoplication in 05/2012 Dr. Arroyo. 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 Recommend repeat upper endoscopy in 2 years. GERD (gastroesophageal reflux disease) 3 Hiatal hernia 05/26/2013 Resolved Problems Problem Noted Date Diagnosed Date Resolved Date Tattoo of skin 09/21/2013 07/14/2024 Bipolar affective disorder ( [facility] V24, [facility] V28) 05/26/2013 07/14/2024 Overview (2024): Getting ativan from Steph Jerome at [facility] for anxiety symptoms Encounters Date Type Department Care Team Description 03/30/2025 8:45 AM EDT Office Visit Adult Medicine [address] [phone] Paulette Hollis MD Cervical spondylosis (Primary Dx); Other osteoporosis without current pathological fracture; Vitamin D deficiency; Mixed hyperlipidemia; Prediabetes 02/08/2025 10:33 AM EDT - 02/08/2025 11:59 PM EDT Hospital Encounter [facility] [address] [place] [address] Cervical spondylosis Discharge Disposition: Home or Self Care from Last 3 Months Immunizations Immunization Administration Dates Next Due DTP 02/10/1985, 2,1980,1980,1980 Hepatitis B Pediatric (Enger ix B; Recombivax HB) to less than 20 yo 10/29/2000,02/12/1999,01/20/1998 MMR, measles mumps and rubel la Live (Priorix; M-M-R II) 12mo and older 11/13/1992,08/30/1981 OPV 02/10/1985, 2,1980,1980,1980 Td Tetanus diptheria (Tdvax) 7yo and older 12/30/1994 Tdap Tetanus diptheria acell ular pertussis (Boostrix; Adacel) 7yo and older 07/14/2013 Surgical History Surgery Date Site/Laterality Comments TONSILLECTOMY PROCEDURE: HISTORICAL TONSILLECTOMY WRIST SURGERY 07/2012 PROCEDURE: HISTORICAL WRIST SURGERY; COMMENT: left wrist orif OTHER SURGICAL HISTORY PROCEDURE: LAPAROSCOPIC FUNDOPLASTY; COMMENT: nissel fundoplication ESOPHAGOGASTRODUODENOSCOPY 03/20/2011 PROCEDURE: MA EGD TRANSORAL BIOPSY SINGLE/MULTIPLE; COMMENT: Dr. 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 Mild chronic gastritis. Normal duodenal biopsy. Esophageal biopsy positive for Hubbard's mucosa without dysplasia. ESOPHAGOGASTRODUODENOSCOPY 04/27/2013 PROCEDURE: MA EGD TRANSORAL BIOPSY SINGLE/MULTIPLE; COMMENT: Dr. Jain - long segment of Hubbard's esophagus. Status post fundoplication. Esophageal biopsy confirms Hubbard's mucosa without dysplasia. Recommend repeat upper endoscopy in 2 years. ESOPHAGOGASTRODUODENOSCOPY 01/19/15 PROCEDURE: MA ESOPHAGOGASTRODUODENOSCOPY TRANSORAL DIAGNOSTIC; COMMENT: Dr. Mehendiratta; Hubbard's esophagus, interval improvement of proximal esophageal stricture status post further dilation up to 20 mm Medical History Medical History Date Comments GERD (gastroesophageal reflu x disease) 05/26/2013 DX:GERD (gastroesophageal re flux disease) Hiatal hernia 05/26/2013 DX:Hiatal hernia Hubbard's esophagus 05/26/2013 DX:Hubbard's esophagus; COMMENT: Tito Fundoplication in 05/2012 Dr. Arroyo Bipolar affective disorder ( [facility] V24, [facility] V28) 05/26/2013 DX:Bipolar affective disorde r ([facility]); COMMENT: Getting ativan from Steph Jerome at [facility] for anxiety symptoms Osteopenia DX:Osteopenia Tattoo [...] Years Used Date Smoking Tobacco: Former Cigarettes 1 Q uit: 06/16/2010 Smokeless Tobacco: Never Tobacco [...] for your loved ones. For example, child welfare worker or elderly care for an older adult? [...] Date Recorded What is your living situation? Unrecognized valu e 10/26/2024 Sex and Gender Information Value Date Recorded Sex Assigned at Not on file Legal Sex Male 1:15 AM EST Gender Identity Not on file Sexual Orientation Not on file Obstetrics History Last Filed Vital Signs Vital Sign Reading Time Taken Comments Blood Pressure 108/70 03/30/2025 8:41 AM EDT Pulse 76 03/30/2025 8:41 AM EDT Temperature 36.4 C (97.6 F) 03/30/2025 8:41 AM EDT Respiratory Rate 14 03/30/2025 8:41 AM EDT Oxygen Saturation 99% 03/30/2025 8:41 AM EDT Inhaled Oxygen Concentration - - Weight 79.8 kg (176 lb) 03/30/2025 8:41 AM EDT Height 172.7 cm (5' 8 ) 03/30/2025 8:41 AM EDT Body Mass Index 26.76 03/30/2025 8:41 AM EDT Plan of Treatment Upcoming Encounters Date Type Department Care Team (Late st Contact Info) Description 05/25/2025 7:30 AM EST Office Visit [facility] - [address] [phone] Paulette Hollis MD [address] [place] [address] Health Maintenance Due Date Last Done Comments Hepatitis B Vaccines (3 of 3 - 3-dose series) 12/24/2000 10/29/2000, 02/12/1999, 01/20/1998 HPV Vaccines (1 - 3-dose SCDM series) 2007 DTaP,Tdap,and Td Vaccines (8 - Td or Tdap) 07/14/2023 07/14/2013, 12/30/1994, 02/10/1985, Additional history exists COVID-19 Vaccine ( - 2024- season) 2025 12/06/2020, 11/15/2020 Social Influencers of Health Screening 10/26/2025 10/26/2024 Influenza Vaccine (#1) 2025 Postp oned from 02/14/2025 (Patient Refused) Cholesterol Screening (Lipid Panel) 10/09/2028 10/10/2023, 10/10/2023 RSV Immunization Adult Patients (1 - 1-dose 75+ series) 2055 IPV Vaccines Completed 02/10/1985, 11/14, 1980, Additional history exists MMR Vaccines Completed 11/13/1992, 08/30/1981 HIV Screening Completed 12/20/2020 Hepatitis C Screening Completed 05/30/2022 Depression Screening Completed 10/26/2024 HIB Vaccines Aged Out No longer eligi [...] 5 Years) and At-Risk Patients (6 to 49 Years) Aged Out No longer eligible based on patient's age to complete this topic RSV Immunization Patients Under 20 months Aged Out No longer eligible based on patient's age to complete this topic Varicella Vaccines Aged Out No longer eligible based on patient's age to complete this topic Procedures Procedure Name Priority Date/Time Associated Diagnosis Comments XR CERVICAL SPINE 4-5 VIEWS Routine 02/08/2025 10:57 AM EDT Cervical spondylosis LIPID PANEL Routine 10/10/2023 HEPATITIS C SCREENING Routine 05/30/2022 HIV SCREENING Routine 12/20/2020 from Last 3 Months or Most Recently Relevant to Health Maintenance Results * XR Cervical Spine 4-5 Views (02/08/2025 10:57 AM EDT) Anatomical Region Laterality Modality Spine, C-spine Radiographic Alison ging 02/08/2025 11:4 9 AM EDT Impressions 02/08/2025 12:09 PM EDT Reversal of expected lordosis. Slight volume loss superior endplate C6 does not appear acute. There is associated disc narrowing and there is some uncovertebral joint disease. No pathologic change in alignment with flexion or extension. -------- FINAL REPORT -------- Dictated By: Param Arriaga Dictated Date: 02/08/2025 11:49 ET Assigned Physician: Param Arriaga Reviewed and Electronically Signed By: Param Arriaga Signed Date: 02/08/2025 12:09 ET Workstation ID: [id number] Transcribed By: Self Edit Transcribed Date: 02/08/2025 11:58 ET Narrative 02/08/2025 12:09 PM EDT EXAMINATION: CERVICAL SPINE CLINICAL INFORMATION: Worsening neck pain. Remote fall. COMPARISON: None. TECHNIQUE: Frontal view of the cervical spine. Lateral view the cervical spine in neutral, flexion and extension. FINDINGS: No definite prevertebral soft tissue abnormality. There is reversal of the expected cervical lordosis in the neutral position. There is no acute fracture. There is slight volume loss involving the superior aspect of C6 which does not appear acute. The lamina at C6 are not optimally evaluated. There is no definite pathologic change in alignment with flexion or extension. There is some vacuum phenomena at C5/C6. No suspicious focal lesion. Slight disruption of the spinal laminar line at C5/C6. There is at least moderate narrowing of the C5/C6 disc. There is uncovertebral joint disease at C5/C6. No suspicious abnormality in the visualized apex of the chest Procedure Note Param Arriaga MD - 02/08/2025 EXAMINATION: CERVICAL SPINE CLINICAL INFORMATION: Worsening neck pain. Remote fall. COMPARISON: None. TECHNIQUE: Frontal view of the cervical spine. Lateral view the cervical spine inneutral, flexion and extension. FINDINGS: No definite prevertebral soft tissue abnormality. There is reversal of the expected cervical lordosis in the neutralposition. There is no acute fracture. There is slight volume lossinvolving the superior aspect of C6 which does not appear acute. The lamina at C6 are not optimally evaluated. There is no definitepathologic change in alignment with flexion or extension. There is somevacuum phenomena at C5/C6. No suspicious focal lesion. Slight disruptionof the spinal laminar line at C5/C6. There is at least moderate narrowing of the C5/C6 disc. There is uncovertebral joint disease at C5/C6. No suspicious abnormality in the visualized apex of the chest IMPRESSION: Reversal of expected lordosis. Slight volume loss superior endplate C6does not appear acute. There is associated disc narrowing and there issome uncovertebral joint disease. No pathologic change in alignment with flexion or extension. -------- FINAL REPORT -------- Dictated By: Param Arriaga Dictated Date: 02/08/2025 11:49 ET Assigned Physician: aPram Arriaga Reviewed and Electronically Signed By: Param Arriaga Signed Date: 02/08/2025 12:09 ET Workstation ID: [id number] Transcribed By: Self Edit Transcribed Date: 02/08/2025 11:58 ET us Leila DOVER IMG XR PROCEDURES Final Re sult * (ABNORMAL) Lipid panel (10/10/2023) LDL/HDL Ratio [...] * HIV Screening (12/20/2020) HIV Screening abstracted Historical Provider HEALTH MAINTENANCE Final Result from Last 3 Months or Most Recently Relevant to Health Maintenance Insurance [facility] Care Teams Bioinformatics Programmer Relationship Specialty Start Date End Date Paulette Hollis MD [address] [place] [phone] PCP - General Internal Medicine 02/25/22
--- OUTSIDE RECORDS SUMMARY | 2025-05-11 05:36 | XMS_ITS | Encounter Summary ---
Author Organization [facility] Address [address] [place] [phone] Phone Care Team Providers Care Pharmaceutical Detailer Name Role Phone Xavier Harris MD Primary Care Provider [phone] Sheldon Jalloh MD Unavailable [phone] Reason for Referral * Occupational Therapy (Routine) - Closed Specialty Diagnoses / Procedures Referred By Leti harry Referred To Contact Occupational Therapy Diagnoses Encounter for rehabilitation System, Provider Not In, [facility] [id number] [place] [address] Phone: tel: Referral ID Status Reason Start Date Expiration Date Visits Re quested Visits Authorized [id number] Closed 01/20/2018 03/15/2018 9 9 Encounter Details Date Type Department Care Team (Latest Contact Info) Description 01/16/2018 Transcribe Orders [facility] [address] [place] [id number] Mari Warner PA [address] [place] [phone] Encounter for rehabilitation (Primary Dx) Social History Tobacco Use Types Packs/Day Years Used Date Smoking Tobacco: Never Assessed Sex and Gender Information Value Date Recorded Sex Assigned at Male 08/25/2020 9:15 AM EST Legal Sex Male 5:45 PM EST Gender Identity Male 08/25/2020 9:15 AM EST Sexual Orientation Straight 08/25/2020 9: 15 AM EST documented as of this encounter Plan of Treatment Scheduled Referrals Name Type Priority Associated Diagnoses Orde r Schedule Ambulatory referral to [facility] Occupational Therapy Outpatient Referral Routine Encounter for rehabilitation Ordered: 01/16/2018 documented as of this encounter Visit Diagnoses Diagnosis Encounter for rehabilitation- Primary documented in this encounter Care Teams Pharmaceutical Detailer Relationship Specialty Start Date End Date Xavier Harris MD [address] [place] [address] PCP - General Internal Medicine 08/10/15 Sheldon Jalloh MD [address] [place] [id number] Gastroenterology 11/13/22 documented as of this encounter Additional Source Comments The information contained in this document represents components of the legal health record. It is not the complete legal health record.[facility]
--- OUTSIDE RECORDS SUMMARY | 2025-05-11 05:36 | XMS_ITS ---
Author Name [facility] Organization Unknown Care Team Organization Name Specialty Phone Email Start Date End Da te [facility] Paulette Hollis Primary Care 05/28/2023 024 [facility] Kalpana Lee MD Primary Care 04/23/2022 02/02/2024
--- OUTSIDE RECORDS SUMMARY | 2025-05-11 05:36 | XMS_ITS | Encounter Summary ---
Author Organization [facility] Address [address] [place] [address] [place] [address] Phone Care Team Providers Care Inside Sales Account Manager Name Role Phone Xavier Harris MD Primary Care Provider [phone] Sheldon Jalloh MD Unavailable [phone] Encounter Details Date Type Department Care Team (Late st Contact Info) Description 01/07/2024 Procedure Pass [facility] 4 ENDO DEPT [address] [facility], 4th [place] [address] Social History Tobacco Use Types Packs/Day Years [...] as food, clothing, or medical care? No 01/07/2024 In the past 12 months have y ou been in a relationship with a person who hurts, threatens, or tries to control you? No 01/07/2024 Are you denied basic needs s uch as food, clothing, or medical care? No 01/07/2024 In the past 12 months have y ou been in a relationship with a person who hurts, threatens, or tries to control you? No 01/07/2024 Sex and Gender Information Value Date Recorded Sex Assigned at Male 08/25/2020 9:15 AM EST Legal Sex Male 5:45 PM EST Gender Identity Male 08/25/2020 9:15 AM EST Sexual Orientation Straight 08/25/2020 9: 15 AM EST documented as of this encounter Plan of Treatment Not on file documented as of this encounter Visit Diagnoses Not on filedocumented in this encounter Care Teams Inside Sales Account Manager Relationship Specialty Start Date End Date Xavier Harris MD [address] [place] [address] PCP - General Internal Medicine 08/10/15 Sheldon Jalloh MD [address] [place] [phone] Gastroenterology 11/13/22 documented as of this encounter Additional Source Comments The information contained in this document represents components of the legal health record. It is not the complete legal health record.[facility]
[2025-05-11 05:39] LABS: Troponin-I High Sensitivity < 2.7 ng/L (<3.5-35.0)
== END 2025-05-11 07:06 | disposition home or self-care (01) ==
PROVIDERS: Emergency Provider Emergency Medicine; PCP Internal Medicine
DX: I95.1 Orthostatic hypotension (principal)
CPT/HCPCS: 36415; 80053; 84484; 85025; 93005; 96360; 99284; 99285

== ENCOUNTER → 2025-05-11 04:57 | Outpatient (BNV) | payer OTHER, SELFPAY | PROVIDERS: Emergency Provider Emergency Medicine; PCP Internal Medicine; Visit Provider Internal Medicine Cardiovascular Disease | DX: R55 Syncope and collapse (principal) | CPT/HCPCS: 93010 ==